=== PATIENT | female | born 1945 | race Caucasian/White ===

== ENCOUNTER 2018-02-26 17:08 | Emergency (ER) | payer MEDICARE ==
--- NOTE | 2018-02-26 17:55 | EDM.PDOC ---
ED HPI GENERAL MEDICAL PROBLEM - General Chief Complaint: ENT Problem Stated Complaint: HEAD AND EYE PAIN FALL Time Seen by Provider: 02/26/18 17:50 Source of Information: Reports: Patient, Family History Limitations: Reports: No Limitations - History of Present Illness INITIAL COMMENTS - FREE TEXT/NARRATIVE: Dominga lost her balance last pm and fell backwards, striking her posterior scalp onto the sidewallk. There was no LOC. She did develop a subconjuctival hemorrhage of the L eye today. Her vision is unaffected. She has some residual headache, and family suggested a medical evaluation. 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 - Related Data Allergies Allergy/AdvReac Type Severity Reaction Status Date / Time acetaminophen [From Percocet] Allergy Stomach Verified 06/16/14 21:38 Upset amoxicillin trihydrate Allergy Abdominal Verified 06/16/14 21:38 [From Augmentin] Pain hydrocodone Allergy Stomach Verified 06/16/14 21:38 Upset hydromorphone HCl Allergy Hallucinati Verified 06/16/14 21:38 [From Dilaudid] ons Latex, Natural Rubber Allergy Rash Verified 06/16/14 21:38 nitrofurantoin Allergy Stomach Verified 06/16/14 21:38 [From Macrobid] Upset nitrofurantoin Allergy Stomach Verified 06/16/14 21:38 macrocrystalline Upset [From Macrobid] ofloxacin [From Floxin] Allergy Agitation Verified 06/16/14 21:38 oxycodone HCl [From Percocet] Allergy Stomach Verified 06/16/14 21:38 Upset potassium clavulanate Allergy Abdominal Verified 06/16/14 21:38 [From Augmentin] Pain Home Meds: Home Meds Aspirin [Halfprin] 81 mg PO DAILY 05/20/14 [History] Calcium Carbonate/Vitamin D3 [Calcium 600 + Vit D Tablet] 1 tab PO BID 05/20/14 [History] Clobetasol [Temovate 0.05% Crm] 1 applic TOP ASDIRECTED PRN 05/20/14 [History] Estradiol [Estrace] 2 mg VAG ASDIRECTED PRN 05/20/14 [History] Imatinib [Gleevec] 200 mg PO BID 05/20/14 [History] Losartan [Cozaar] 25 mg PO DAILY 05/20/14 [History] Multivit-Min/FA/Lycopene/Lut [Centrum Silver] 1 tab PO DAILY 05/20/14 [History] Omeprazole 20 mg PO DAILY 05/20/14 [History] metFORMIN [Glucophage] 500 mg PO BID 05/20/14 [History] Ciprofloxacin HCl 500 mg PO BID 06/07/14 [History] Past Medical History Oncologic (Cancer) History: Reports: Other (See Below) (CML) ED ROS GENERAL - Review of Systems Review Of Systems: ROS reveals no pertinent complaints other than HPI. ED EXAM, GENERAL - Physical Exam Exam: See Below Exam Limited By: No Limitations General Appearance: Alert, WD/WN, No Apparent Distress Eye Exam: Right Eye: Normal Inspection, Left Eye: Other (subconjunctival hemorrhage), Bilateral Eye: EOMI, PERRL Ears: Normal External Exam, Normal TMs Nose: Normal Inspection, Normal Mucosa Throat/Mouth: Normal Inspection, Normal Lips, Normal Teeth, Normal Gums, Normal Oropharynx, Normal Voice, No Airway Compromise Head: Normocephalic, Other (contusion overlying occiput, no swelling) Neck: Normal Inspection, Supple, Non-Tender, Full Range of Motion Respiratory/Chest: Lungs Clear, Normal Breath Sounds, Chest Non-Tender Cardiovascular: Regular Rate, Rhythm, No Murmur GI/Abdominal: Normal Bowel Sounds, Soft, Non-Tender, No Organomegaly, No Distention, No Mass (Female) Exam: Deferred Rectal (Female) Exam: Deferred Back Exam: Normal Inspection Extremities: Normal Inspection, Normal Range of Motion, Non-Tender Neurological: Alert, Oriented, CN II-XII Intact, Normal Cognition, Abnormal Gait Psychiatric: Normal Affect, Normal Mood Skin Exam: Warm, Dry, Intact, Normal Color, Ecchymosis (occiput) Lymphatic: No Adenopathy Course - Vital Signs Text/Narrative:: Dominga remained stable at the [facility] ED. No meds were administered. her noncontrast Head CT was negative for intracranial pathology. Last Recorded V/S: Last Vital Signs Temp 36.8 C 02/26/18 17:20 Pulse 81 02/26/18 17:20 Resp 18 02/26/18 17:20 BP 131/67 02/26/18 17:20 Pulse Ox 97 02/26/18 17:20 - Orders/Labs/Meds Orders: Active Orders 24 hr Category Date Time Status Head wo Cont [CT] Urgent Exams 02/26/18 17:54 Taken Departure - Departure Time of Disposition: 18:45 Disposition: Home, Self-Care 01 Condition: Good Clinical Impression: Subconjunctival hemorrhage of left eye Contusion of occipital region of scalp Qualifiers: Encounter type: initial encounter Qualified Code(s): S00.03XA - Contusion of scalp, initial encounter - Discharge Information *PRESCRIPTION DRUG MONITORING PROGRAM REVIEWED*: Not Applicable *COPY OF PRESCRIPTION DRUG MONITORING REPORT IN PATIENT ESTEBAN: Not Applicable Forms: ED Department Discharge - Problem List & Annotations (1) Contusion of occipital region of scalp SNOMED Code(s): 649254400 Code(s): S00.03XA - CONTUSION OF SCALP, INITIAL ENCOUNTER Status: Acute Current Visit: Yes Annotation/Comment:: Sxs cares, analgesic of choice. Qualifiers: Encounter type: initial encounter Qualified Code(s): S00.03XA - Contusion of scalp, initial encounter (2) Subconjunctival hemorrhage of left eye SNOMED Code(s): 76006028 Code(s): H11.32 - CONJUNCTIVAL HEMORRHAGE, LEFT EYE Status: Acute Current Visit: Yes Annotation/Comment:: Observation - Problem List Review Problem List Initiated/Reviewed/Updated: Yes - My Orders Last 24 Hours: My Active Orders 02/26/18 17:54 Head wo Cont [CT] Urgent - Assessment/Plan Last 24 Hours: My Active Orders 02/26/18 17:54 Head wo Cont [CT] Urgent Plan: Follow up if needed.
== END 2018-02-26 19:20 | disposition home or self-care (01) ==
LOC: FB.ED 17:08
DX: H11.32 Conjunctival hemorrhage, left eye (principal); Z88.5 Allergy status to narcotic agent; Z88.8 Allergy status to other drugs, medicaments and biological substances; Z79.82 Long term (current) use of aspirin; Z79.899 Other long term (current) drug therapy
CPT/HCPCS: 70450; 99282

== ENCOUNTER 2019-02-18 13:33 | Emergency (ER) | payer MEDICARE ==
[2019-02-18] MEDS ORDERED: LORazepam 2 MG/ML SDV IM ONE (14:04)
[2019-02-18] MEDS ORDERED: Alum Hydroxide/Mag Hydroxide 15 ML, Lidocaine 2% 15 ML PO ONE ×2 (14:04)
--- NOTE | 2019-02-18 14:41 | EDM.PDOC ---
ED HPI GENERAL MEDICAL PROBLEM - General Chief Complaint: General Stated Complaint: TREMORS, B/P LOW Time Seen by Provider: 02/18/19 13:55 Source of Information: Reports: Patient - History of Present Illness INITIAL COMMENTS - FREE TEXT/NARRATIVE: Patient is a 73 YO WF who presented to the ED because of epigastric pain, burning sometimes dull ache/08/04. She also c/o nausea but no vomiting. Patient is anxious and is shaky. She said her anxiety is not well controlled with her present medication. - Related Data Allergies Allergy/AdvReac Type Severity Reaction Status Date / Time acetaminophen [From Percocet] Allergy Stomach Verified 02/26/18 19:11 Upset amoxicillin trihydrate Allergy Abdominal Verified 02/26/18 19:11 [From Augmentin] Pain hydrocodone Allergy Stomach Verified 02/26/18 19:11 Upset hydromorphone HCl Allergy Hallucinati Verified 02/26/18 19:11 [From Dilaudid] ons Latex, Natural Rubber Allergy Rash Verified 02/26/18 19:11 nitrofurantoin Allergy Stomach Verified 02/26/18 19:11 [From Macrobid] Upset nitrofurantoin Allergy Stomach Verified 02/26/18 19:11 macrocrystalline Upset [From Macrobid] ofloxacin [From Floxin] Allergy Agitation Verified 02/26/18 19:11 oxycodone HCl [From Percocet] Allergy Stomach Verified 02/26/18 19:11 Upset potassium clavulanate Allergy Abdominal Verified 02/26/18 19:11 [From Augmentin] Pain Home Meds: Home Meds Aspirin [Halfprin] 81 mg PO DAILY 05/20/14 [History] Calcium Carbonate/Vitamin D3 [Calcium 600 + Vit D Tablet] 1 tab PO BID 05/20/14 [History] Clobetasol [Temovate 0.05% Crm] 1 applic TOP ASDIRECTED PRN 05/20/14 [History] Imatinib [Gleevec] 200 mg PO BID 05/20/14 [History] Losartan [Cozaar] 25 mg PO DAILY 05/20/14 [History] Multivit-Min/FA/Lycopene/Lut [Centrum Silver] 1 tab PO DAILY 05/20/14 [History] Omeprazole 20 mg PO DAILY 05/20/14 [History] metFORMIN [Glucophage] 500 mg PO BID 05/20/14 [History] L.acidoph,Paracasei, B.lactis [Probiotic] 1 tab PO DAILY 02/26/18 [History] Sertraline [Zoloft] 100 mg PO DAILY 02/26/18 [History] atorvaSTATin [Lipitor] 20 mg PO BEDTIME 02/26/18 [History] Past Medical History Oncologic (Cancer) History: Reports: Other (See Below) (CML) ED ROS GENERAL - Review of Systems Review Of Systems: See Below Constitutional: Reports: No Symptoms HEENT: Reports: No Symptoms Respiratory: Reports: No Symptoms Cardiovascular: Reports: No Symptoms Endocrine: Reports: No Symptoms GI/Abdominal: Reports: Other (epigastric pain) : Reports: No Symptoms Musculoskeletal: Reports: No Symptoms Skin: Reports: No Symptoms Neurological: Reports: No Symptoms ED EXAM, GENERAL - Physical Exam Exam: See Below Exam Limited By: No Limitations General Appearance: Alert, No Apparent Distress Ears: Normal External Exam Nose: Normal Inspection, Normal Mucosa Throat/Mouth: Normal Inspection Head: Atraumatic, Normocephalic Neck: Normal Inspection, Non-Tender Respiratory/Chest: No Respiratory Distress, Lungs Clear, Normal Breath Sounds Cardiovascular: Normal Peripheral Pulses, Regular Rate, Rhythm GI/Abdominal: Normal Bowel Sounds, Soft, Other (epigastric tenderness) Extremities: Normal Inspection Neurological: Alert, Oriented Psychiatric: Anxious Course - Vital Signs Text/Narrative:: EKG-NSR No acute ST or T wave changes GI cocktail resolved her epigastric pain Ativan 1 mg IM x1 Last Recorded V/S: Last Vital Signs Temp 36.9 C 02/18/19 13:50 Pulse 86 02/18/19 13:50 Resp 15 02/18/19 13:50 BP 126/58 L 02/18/19 13:50 Pulse Ox 100 02/18/19 13:50 - Orders/Labs/Meds Orders: Active Orders 24 hr Category Date Time Status EKG Documentation Completion [RC] ASDIRECTED Care 02/18/19 14:03 Active EKG 12 Lead [EK] Routine Ther 02/18/19 14:03 Ordered Meds: Medications Discontinued Medications Generic Name Dose Route Start Last Admin Trade Name Freq PRN Reason Stop Dose Admin Al Hydroxide/Mg Hydroxide 15 0 ml 02/18/19 14:04 02/18/19 14:17 ml/ Lidocaine HCl 15 ml PO 02/18/19 14:05 30 ml ONETIME ONE Administration Lorazepam 1 mg 02/18/19 14:04 02/18/19 14:16 Ativan IM 02/18/19 14:05 1 mg ONETIME ONE Administration Departure - Departure Time of Disposition: 14:35 Disposition: Home, Self-Care 01 Clinical Impression: GERD (gastroesophageal reflux disease), Anxiety - Discharge Information Instructions: Heartburn, [id number], Panic Attack, [id number] Referrals: Susanna Avery NP [Primary Care Provider] - Forms: ED Department Discharge Additional Instructions: Please read discharge instructions on anxiety and GERD/Acid Reflux Follow up with your primary doctor or psychiatrist regarding your anxiety - My Orders Last 24 Hours: My Active Orders 02/18/19 14:03 EKG Documentation Completion [RC] ASDIRECTED EKG 12 Lead [EK] Routine - Assessment/Plan Last 24 Hours: My Active Orders 02/18/19 14:03 EKG Documentation Completion [RC] ASDIRECTED EKG 12 Lead [EK] Routine
== END 2019-02-18 14:50 | disposition home or self-care (01) ==
LOC: FB.ED 13:33
DX: K21.9 Gastro-esophageal reflux disease without esophagitis (principal); F41.9 Anxiety disorder, unspecified; Z88.5 Allergy status to narcotic agent; Z91.040 Latex allergy status; Z88.1 Allergy status to other antibiotic agents; Z88.8 Allergy status to other drugs, medicaments and biological substances; Z79.82 Long term (current) use of aspirin; Z79.84 Long term (current) use of oral hypoglycemic drugs; Z79.899 Other long term (current) drug therapy
CPT/HCPCS: 93005; 96372; 99283; A9270; J2060

== ENCOUNTER 2019-12-31 12:11 | Emergency (ER) | payer MEDICARE ==
--- NOTE | 2019-12-31 13:59 | EDM.PDOC ---
ED HPI GENERAL MEDICAL PROBLEM - General Chief Complaint: General Stated Complaint: FALL Time Seen by Provider: 12/31/19 12:15 Source of Information: Reports: Patient History Limitations: Reports: No Limitations - History of Present Illness INITIAL COMMENTS - FREE TEXT/NARRATIVE: Patient presented to the ED because she tripped and fell and landed on her face to the floor. She c/o mild headache and took ibuprofen 400 mg. There is no associated N/V. There is no LOC after the fall. She wasn't feeling dizzy or weak prior to the fall. She said she fell because her loose stool was dripping down the floor and that's why she slipped and fell. - Related Data Allergies Allergy/AdvReac Type Severity Reaction Status Date / Time acetaminophen [From Percocet] Allergy Stomach Verified 02/18/19 15:57 Upset amoxicillin trihydrate Allergy Abdominal Verified 02/18/19 15:57 [From Augmentin] Pain hydrocodone Allergy Stomach Verified 02/18/19 15:57 Upset hydromorphone HCl Allergy Hallucinati Verified 02/18/19 15:57 [From Dilaudid] ons Latex, Natural Rubber Allergy Rash Verified 02/18/19 15:57 nitrofurantoin Allergy Stomach Verified 02/18/19 15:57 [From Macrobid] Upset nitrofurantoin Allergy Stomach Verified 02/18/19 15:57 macrocrystalline Upset [From Macrobid] ofloxacin [From Floxin] Allergy Agitation Verified 02/18/19 15:57 oxycodone HCl [From Percocet] Allergy Stomach Verified 02/18/19 15:57 Upset potassium clavulanate Allergy Abdominal Verified 02/18/19 15:57 [From Augmentin] Pain Home Meds: Home Meds Aspirin [Halfprin] 81 mg PO DAILY 05/20/14 [History] Calcium Carbonate/Vitamin D3 [Calcium 600 + Vit D Tablet] 1 tab PO BID 05/20/14 [History] Clobetasol [Temovate 0.05% Crm] 1 applic TOP ASDIRECTED PRN 05/20/14 [History] Imatinib [Gleevec] 200 mg PO BID 05/20/14 [History] Losartan [Cozaar] 25 mg PO DAILY 05/20/14 [History] Multivit-Min/FA/Lycopene/Lut [Centrum Silver] 1 tab PO DAILY 05/20/14 [History] Omeprazole 20 mg PO DAILY 05/20/14 [History] metFORMIN [Glucophage] 500 mg PO BID 05/20/14 [History] L.acidoph,Paracasei, B.lactis [Probiotic] 1 tab PO DAILY 02/26/18 [History] Sertraline [Zoloft] 100 mg PO DAILY 02/26/18 [History] atorvaSTATin [Lipitor] 20 mg PO BEDTIME 02/26/18 [History] Past Medical History Psychiatric History: Reports: Anxiety, Depression 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 Social & Family History - Family History Family Medical History: Noncontributory - Caffeine Use Caffeine Use: Reports: Coffee, Soda ED ROS GENERAL - Review of Systems Review Of Systems: See Below Constitutional: Reports: No Symptoms HEENT: Reports: No Symptoms Respiratory: Reports: No Symptoms Cardiovascular: Reports: No Symptoms Endocrine: Reports: No Symptoms GI/Abdominal: Reports: No Symptoms, Diarrhea : Reports: No Symptoms Musculoskeletal: Reports: No Symptoms Skin: Reports: No Symptoms, Other (ecchymoses-rt orbital area) Neurological: Reports: No Symptoms Psychiatric: Reports: No Symptoms Hematologic/Lymphatic: Reports: No Symptoms ED EXAM, GENERAL - Physical Exam Exam: See Below Exam Limited By: No Limitations General Appearance: Alert, No Apparent Distress Ears: Normal External Exam, Normal Canal Nose: Normal Inspection, Normal Mucosa Throat/Mouth: Normal Inspection, Normal Lips, Normal Teeth Head: Atraumatic, Normocephalic, Facial Tenderness Neck: Normal Inspection Respiratory/Chest: No Respiratory Distress, Lungs Clear, Normal Breath Sounds Cardiovascular: Normal Peripheral Pulses, Regular Rate, Rhythm, No Edema, No Gallop GI/Abdominal: Normal Bowel Sounds, Soft, Non-Tender, No Organomegaly Back Exam: Normal Inspection, Full Range of Motion Extremities: Normal Inspection, Normal Range of Motion, Non-Tender Neurological: Alert, Oriented, CN II-XII Intact, Normal Cognition, Normal Gait Psychiatric: Normal Affect, Normal Mood Skin Exam: Warm, Dry, Intact Course - Vital Signs Text/Narrative:: Head and Facial CT-neg Patient have no Neuro symptoms Last Recorded V/S: Last Vital Signs Temp 37.1 C 12/31/19 12:11 Pulse 82 12/31/19 12:11 Resp 18 12/31/19 12:11 BP 142/58 H 12/31/19 12:11 Pulse Ox 100 12/31/19 12:11 - Orders/Labs/Meds Orders: Active Orders 24 hr Category Date Time Status Head wo Cont [CT] Stat Exams 12/31/19 12:59 Taken Max Facial Sinus wo Cont [CT] Stat Exams 12/31/19 12:59 Taken Departure - Departure Time of Disposition: 14:10 Disposition: Home, Self-Care 01 Condition: Good Clinical Impression: Closed head injury, Facial injury, Fall, Diarrhea - Discharge Information Referrals: Susanna Avery [employer]ISING MANAGER [Primary Care Provider] - Additional Instructions: Please read discharge instructions on closed head injury take tylenol 1000 mg every 8 hours as needed for pain Take imodium 2 tablets every 6 hours as needed for diarrhea. Follow up as needed Sepsis Event Note (ED) - Evaluation Sepsis Screening Result: No Definite Risk - Focused Exam Vital Signs: Vital Signs Temp Pulse Resp BP Pulse Ox 12/31/19 12:11 37.1 C 82 18 142/58 H 100 - My Orders Last 24 Hours: My Active Orders 12/31/19 12:59 Head wo Cont [CT] Stat Max Facial Sinus wo Cont [CT] Stat - Assessment/Plan Last 24 Hours: My Active Orders 12/31/19 12:59 Head wo Cont [CT] Stat Max Facial Sinus wo Cont [CT] Stat
--- NOTE | 2019-12-31 14:17 | CT ---
INDICATION: Fall/facial injury right eye area. Fell facedown on the floor. CT HEAD WITHOUT CONTRAST: Spiral 3.75 mm axial sections were obtained through the brain without contrast 12/31/19 with sagittal and coronal reconstructions and compared with 02/26/18 examination. Total exam DLP was 1322.30 mGy-cm. There is again noted what appears to be a moderately large retention cyst in the right maxillary antrum. The paranasal sinuses and the mastoid air cells were otherwise well aerated. [id number] degenerative changes are noted at the odonto-atlantean joint. The orbits appear to be intact. Soft tissue swelling is noted overlying the right orbit, especially laterally, and extending into the temporal area. Mild deformity is noted at the nasal bones, present previously - no acute fracture site was noted at the nasal bones. No cranial fracture site was seen. No orbital fracture site was seen. Extensive calcification is noted in the vertebral arteries and, to a lesser extent, internal carotid arteries. No shift of midline structures was identified with the ventricles appearing fairly normal. There is a new finding of what appears to be a small lacunar infarct in the left basal ganglia. White matter changes are noted compatible with a mild degree of microvascular disease and appear to be progressive compared with the previous study. The cortical sulci are prominent and appear to be increased in prominence somewhat suggesting progressive cortical atrophy. No progressive central atrophy was seen, however. No evidence of a bleeding site or hematoma was identified. IMPRESSION: 1. No definite acute intracranial abnormality - no bleeding site or hematoma. 2. Lacunar infarct now seen in the left basal ganglia. A very tiny abnormality in that area may have been present previously but is definitely increased in size compared with that previous study from 2018. 3. Progressive cortical atrophy. 4. Cerebrovascular disease with arterial calcifications and white matter changes compatible with microvascular disease type changes. 5. Right maxillary antral probable retention cyst again noted. Report was called to Dr. Meneses at 13:46 hours. [facility]
--- NOTE | 2019-12-31 14:22 | CT ---
INDICATION: Fall/facial injury right eye area, fell facedown on the floor. CT OF THE MAXILLOFACIAL BONES: Spiral 2.5 mm axial sections were obtained through the maxillofacial area with sagittal and coronal reconstructions, 12/31/19 - no comparisons. Total exam DLP was 694.36 mGy-cm. A retention cyst is noted in the right maxillary antrum. The maxillary infundibuli were patent with paranasal sinuses otherwise unremarkable. The orbits appear to be intact. No evidence of blowout fracture or other maxillofacial fracture site was identified. There is some irregularity - minimal deformity at the anterior nasal bones, which has been present previously - on a CT scan previously present 2017, which could be on the basis of previous trauma. However, no acute fracture or dislocation in the maxillofacial area could be identified. IMPRESSION: No evidence of acute fracture maxillofacial area. Report was called to Dr. Meneses at 13:46 hours. [facility]
== END 2019-12-31 14:13 | disposition home or self-care (01) ==
LOC: FB.ED 12:11
DX: S09.90XA Unspecified injury of head, initial encounter (principal); S09.93XA Unspecified injury of face, initial encounter; R19.7 Diarrhea, unspecified; F41.9 Anxiety disorder, unspecified; F32.9 Major depressive disorder, single episode, unspecified; Z88.6 Allergy status to analgesic agent; Z88.1 Allergy status to other antibiotic agents; Z88.5 Allergy status to narcotic agent; Z79.82 Long term (current) use of aspirin; Z79.84 Long term (current) use of oral hypoglycemic drugs; Z79.899 Other long term (current) drug therapy; W01.0XXA Fall on same level from slipping, tripping and stumbling without subsequent striking against object, initial encounter
CPT/HCPCS: 70450; 70486; 99284-25

== ENCOUNTER 2021-01-26 12:56 | Emergency (ER) | payer MEDICARE ==
[2021-01-26] MEDS ORDERED: Pantoprazole 40 MG Vial IVPUSH ONE (13:05)
[2021-01-26] MEDS ORDERED: Sodium Chloride 0.9% 1,000 ML IV ONE (13:06)
[2021-01-26] MEDS ORDERED: Ondansetron 4 MG/2 ML SDV IVPUSH ONE (13:06)
[2021-01-26] MEDS ORDERED: Sodium Chloride 0.9% 10 ML Syringe FLUSH PRN (13:07)
--- NOTE | 2021-01-26 13:44 | EDM.PDOC ---
ED HPI GENERAL MEDICAL PROBLEM - General Stated Complaint: abdominal pain Time Seen by Provider: 01/26/21 13:00 Source of Information: Reports: Patient, Family History Limitations: Reports: No Limitations - History of Present Illness INITIAL COMMENTS - FREE TEXT/NARRATIVE: Patient is a 75 YO WF who presented to the ED because of a 3 day history of abdominal pain, nausea/vomiting of coffee ground emesis,melanotic stools. The pain is sharp,10/10, over the epigastric area radiating to the mid back. Today she is feeling weak and dizzy that's why she decided to be seen in the ED. She also c/o fever,chills, dry cough for the past week. Upper Mid-Anterior Abdomen Pain Score (Numeric/FACES): 2 - Related Data Allergies Allergy/AdvReac Type Severity Reaction Status Date / Time acetaminophen [From Percocet] Allergy Stomach Verified 02/18/19 15:57 Upset amoxicillin trihydrate Allergy Abdominal Verified 02/18/19 15:57 [From Augmentin] Pain hydrocodone Allergy Stomach Verified 02/18/19 15:57 Upset hydromorphone HCl Allergy Hallucinati Verified 02/18/19 15:57 [From Dilaudid] ons Latex, Natural Rubber Allergy Rash Verified 02/18/19 15:57 nitrofurantoin Allergy Stomach Verified 02/18/19 15:57 [From Macrobid] Upset nitrofurantoin Allergy Stomach Verified 02/18/19 15:57 macrocrystalline Upset [From Macrobid] ofloxacin [From Floxin] Allergy Agitation Verified 02/18/19 15:57 oxycodone HCl [From Percocet] Allergy Stomach Verified 02/18/19 15:57 Upset potassium clavulanate Allergy Abdominal Verified 02/18/19 15:57 [From Augmentin] Pain Home Meds: Home Meds Aspirin [Halfprin] 81 mg PO DAILY 05/20/14 [History] Calcium Carbonate/Vitamin D3 [Calcium 600 + Vit D Tablet] 1 tab PO BID 05/20/14 [History] Clobetasol [Temovate 0.05% Crm] 1 applic TOP ASDIRECTED PRN 05/20/14 [History] Imatinib [Gleevec] 200 mg PO BID 05/20/14 [History] Losartan [Cozaar] 25 mg PO DAILY 05/20/14 [History] Multivit-Min/FA/Lycopene/Lut [Centrum Silver] 1 tab PO DAILY 05/20/14 [History] Omeprazole 20 mg PO DAILY 05/20/14 [History] metFORMIN [Glucophage] 500 mg PO BID 05/20/14 [History] L.acidoph,Paracasei, B.lactis [Probiotic] 1 tab PO DAILY 02/26/18 [History] Sertraline [Zoloft] 100 mg PO DAILY 02/26/18 [History] atorvaSTATin [Lipitor] 20 mg PO BEDTIME 02/26/18 [History] Past Medical History Psychiatric History: Reports: Anxiety, Depression Hematologic History: Reports: Other (See Below) Other Hematologic History: hx of leukemia 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 Social & Family History - Family History Family Medical History: No Pertinent Family History - Caffeine Use Caffeine Use: Reports: Coffee, Soda ED ROS GENERAL - Review of Systems Review Of Systems: See Below Constitutional: Reports: No Symptoms, Fever, Chills, Weakness HEENT: Reports: No Symptoms Respiratory: Reports: No Symptoms Cardiovascular: Reports: No Symptoms Endocrine: Reports: No Symptoms GI/Abdominal: Reports: Abdominal Pain, Anorexia, Black Stool, Nausea, Vomiting : Reports: No Symptoms Musculoskeletal: Reports: No Symptoms Skin: Reports: No Symptoms ED EXAM, GI/ABD - Physical Exam Exam: See Below Exam Limited By: No Limitations General Appearance: Alert, No Apparent Distress Eyes: Bilateral: Pale Conjunctiva Ears: Normal External Exam, Normal Canal, Hearing Grossly Normal Nose: Normal Inspection, Normal Mucosa Throat/Mouth: Normal Inspection, Normal Lips, Normal Teeth Head: Atraumatic, Normocephalic Neck: Normal Inspection Respiratory/Chest: No Respiratory Distress, Lungs Clear, Normal Breath Sounds, No Accessory Muscle Use, Chest Non-Tender Cardiovascular: Normal Peripheral Pulses, Regular Rate, Rhythm, No Edema, No Gallop GI/Abdominal Exam: Normal Bowel Sounds, Soft, No Distention, Other (epigastric tenderness) Rectal (Female) Exam: Black Stool Back Exam: Normal Inspection, Full Range of Motion Extremities: Normal Inspection, Normal Range of Motion, Non-Tender Neurological: Alert, Oriented, CN II-XII Intact, Normal Cognition Course - Vital Signs Text/Narrative:: Lab/CXR/CT abd-pelvis result was reviewed and discussed with patient NS 1 L bolus Zofran 4 mg IV x1 Protonix 80 mg IV x1 Last Recorded V/S: Last Vital Signs Temp 37.3 C 01/26/21 12:57 Pulse 107 H 01/26/21 15:07 Resp 16 01/26/21 15:07 BP 95/47 L 01/26/21 15:07 Pulse Ox 100 01/26/21 15:07 - Orders/Labs/Meds Orders: Active Orders 24 hr Category Date Time Status CORONAVIRUS COVID-19 RUDY [MOLEC] Stat Lab 01/26/21 16:28 Ordered OCCULT BLOOD DIAGNOSTIC [OP] Stat Lab 01/26/21 16:28 Ordered Sodium Chloride 0.9% [Normal Saline] 1,000 ml Med 01/26/21 13:06 Active IV .BOLUS Sodium Chloride 0.9% [Saline Flush] Med 01/26/21 13:07 Active 10 ml FLUSH ASDIRECTED PRN Medication Orders Sodium Chloride (Normal Saline) 1,000 mls @ 999 drops/hr IV .BOLUS ONE Stop: 01/27/21 04:06 Last Admin: 01/26/21 13:10 Dose: 999 drops/hr Documented by: PEDRO Sodium Chloride (Sodium Chloride 0.9% 10 Ml Syringe) 10 ml FLUSH ASDIRECTED PRN PRN Reason: Keep Vein Open Labs: Laboratory Tests 01/26/21 01/26/21 01/26/21 Range/Units 13:15 13:15 13:15 WBC 6.3 (3.0-10.3) x10-3/uL RBC 2.36 L (3.60-5.20) x10(6)uL Hgb 7.6 L (11.4-15.5) g/dL Hct 23.0 L (34.2-48.2) % MCV 97.5 (76.7-100.5) fL MCH 32.2 (23.9-33.9) pg MCHC 33.0 (31.9-34.8) g/dL RDW 14.0 (12.3-16.5) % Plt Count 208 (151-488) x10(3)uL MPV 9.5 (7.1-12.4) fL Neut % (Auto) 70.3 (30.8-76.2) % Lymph % (Auto) 18.8 (18.4-52.1) % [place] % (Auto) 8.9 (4.4-15.7) % Eos % (Auto) 1.0 (0.6-8.1) % Baso % (Auto) 1.0 (0.2-1.5) % Neut # (Auto) 4.4 (1.5-6.3) x10-3/uL Lymph # (Auto) 1.2 (1.0-4.4) x10-3/uL [place] # (Auto) 0.6 (0.3-1.0) x10-3/uL Eos # (Auto) 0.1 (0.0-0.8) x10-3/uL Baso # (Auto) 0.1 (0.0-0.1) x10-3/uL PT 11.1 (9.0-11.1) sec INR 1.03 (1.00-1.24) Sodium 142 (135-145) mmol/L Potassium 4.3 (3.5-5.3) mmol/L Chloride 105 (100-110) mmol/L Carbon Dioxide 28 (21-32) mmol/L BUN 52 H (7-18) mg/dL Creatinine 1.1 H (0.55-1.02) mg/dL Est Cr Clr Drug Dosing TNP Estimated GFR (MDRD) 49 L (>60) BUN/Creatinine Ratio 47.3 H (9-20) Glucose 102 (80-116) mg/dL Calcium 9.7 (8.6-10.2) mg/dL Total Bilirubin 0.2 (0.1-1.3) mg/dL AST 38 H D (5-25) IU/L ALT 30 D (12-36) U/L Alkaline Phosphatase 158 H (56-112) IU/L Total Protein 6.1 (6.0-8.0) g/dL Albumin 2.6 L (3.2-4.6) g/dL Globulin 3.5 g/dL Albumin/Globulin Ratio 0.7 Amylase 39 (25-115) U/L Lipase (73-393) U/L Urine Color (YELLOW) Urine Appearance (CLEAR) Urine pH (5.0-6.5) Ur Specific [place] (1.010-1.025) Urine Protein (NEGATIVE) mg/dL Urine Glucose (UA) (NORMAL) mg/dL Urine Ketones (NEGATIVE) mg/dL Urine Occult Blood (NEGATIVE) Urine Nitrite (NEGATIVE) Urine Bilirubin (NEGATIVE) Urine Urobilinogen (NEGATIVE) mg/dL Ur Leukocyte Esterase (NEGATIVE) Urine RBC (0-5) Urine WBC (0-5) Ur Squamous Epith Cells (NS,R,O) Urine Bacteria (NS) 01/26/21 01/26/21 Range/Units 13:15 14:45 WBC (3.0-10.3) x10-3/uL RBC (3.60-5.20) x10(6)uL Hgb (11.4-15.5) g/dL Hct (34.2-48.2) % MCV (76.7-100.5) fL MCH (23.9-33.9) pg MCHC (31.9-34.8) g/dL RDW (12.3-16.5) % Plt Count (151-488) x10(3)uL MPV (7.1-12.4) fL Neut % (Auto) (30.8-76.2) % Lymph % (Auto) (18.4-52.1) % [place] % (Auto) (4.4-15.7) % Eos % (Auto) (0.6-8.1) % Baso % (Auto) (0.2-1.5) % Neut # (Auto) (1.5-6.3) x10-3/uL Lymph # (Auto) (1.0-4.4) x10-3/uL [place] # (Auto) (0.3-1.0) x10-3/uL Eos # (Auto) (0.0-0.8) x10-3/uL Baso # (Auto) (0.0-0.1) x10-3/uL PT (9.0-11.1) sec INR (1.00-1.24) Sodium (135-145) mmol/L Potassium (3.5-5.3) mmol/L Chloride (100-110) mmol/L Carbon Dioxide (21-32) mmol/L BUN (7-18) mg/dL Creatinine (0.55-1.02) mg/dL Est Cr Clr Drug Dosing Estimated GFR (MDRD) (>60) BUN/Creatinine Ratio (9-20) Glucose (80-116) mg/dL Calcium (8.6-10.2) mg/dL Total Bilirubin (0.1-1.3) mg/dL AST (5-25) IU/L ALT (12-36) U/L Alkaline Phosphatase (56-112) IU/L Total Protein (6.0-8.0) g/dL Albumin (3.2-4.6) g/dL Globulin g/dL Albumin/Globulin Ratio Amylase (25-115) U/L Lipase 100 (73-393) U/L Urine Color Yellow (YELLOW) Urine Appearance Clear (CLEAR) Urine pH 5.0 (5.0-6.5) Ur Specific [place] 1.015 (1.010-1.025) Urine Protein Negative (NEGATIVE) mg/dL Urine Glucose (UA) Normal (NORMAL) mg/dL Urine Ketones Negative (NEGATIVE) mg/dL Urine Occult Blood Negative (NEGATIVE) Urine Nitrite Negative (NEGATIVE) Urine Bilirubin Small H (NEGATIVE) Urine Urobilinogen Normal (NEGATIVE) mg/dL Ur Leukocyte Esterase Small H (NEGATIVE) Urine RBC 0-5 (0-5) Urine WBC 0-5 (0-5) Ur Squamous Epith Cells Few H (NS,R,O) Urine Bacteria Rare H (NS) Meds: Medications Generic Name Dose Route Start Last Admin Trade Name Freq PRN Reason Stop Dose Admin Sodium Chloride 1,000 mls @ 999 drops/hr 01/26/21 13:06 01/26/21 13:10 Normal Saline IV 01/27/21 04:06 999 drops/hr .BOLUS ONE Administration Sodium Chloride 10 ml 01/26/21 13:07 Sodium Chloride 0.9% 10 Ml Syringe FLUSH ASDIRECTED PRN Keep Vein Open Discontinued Medications Generic Name Dose Route Start Last Admin Trade Name Freq PRN Reason Stop Dose Admin Iopamidol 75 ml 01/26/21 13:55 01/26/21 14:24 Iopamidol 755 Mg/Ml 75 Ml Bottle IV 01/26/21 13:56 75 ml ASDIRECTED ONE Administration Ondansetron HCl 4 mg 01/26/21 13:06 01/26/21 13:34 Ondansetron 4 Mg/2 Ml Sdv IVPUSH 01/26/21 13:07 4 mg ONETIME ONE Administration Pantoprazole Sodium 80 mg 01/26/21 13:05 01/26/21 13:34 Pantoprazole 40 Mg Vial IVPUSH 01/26/21 13:06 80 mg .BOLUS ONE Administration Departure - Departure Time of Disposition: 18:00 Disposition: DC/Tfer to Acute Hospital 02 Condition: Good Clinical Impression: UGI bleed, Anemia - Discharge Information Referrals: PCP,Unknown [Ordering Only Provider] - Sepsis Event Note (ED) - Focused Exam Vital Signs: Vital Signs Temp Pulse Resp BP Pulse Ox 01/26/21 15:07 107 H 16 95/47 L 100 01/26/21 12:57 37.3 C 74 18 119/63 100 - My Orders Last 24 Hours: My Active Orders 01/26/21 13:06 Sodium Chloride 0.9% [Normal Saline] 1,000 ml IV .BOLUS 01/26/21 13:07 Sodium Chloride 0.9% [Saline Flush] 10 ml FLUSH ASDIRECTED PRN 01/26/21 16:28 CORONAVIRUS COVID-19 RUDY [MOLEC] Stat OCCULT BLOOD DIAGNOSTIC [OP] Stat - Assessment/Plan Last 24 Hours: My Active Orders 01/26/21 13:06 Sodium Chloride 0.9% [Normal Saline] 1,000 ml IV .BOLUS 01/26/21 13:07 Sodium Chloride 0.9% [Saline Flush] 10 ml FLUSH ASDIRECTED PRN 01/26/21 16:28 CORONAVIRUS COVID-19 RUDY [MOLEC] Stat OCCULT BLOOD DIAGNOSTIC [OP] Stat
[2021-01-26] MEDS ORDERED: Iopamidol 755 Mg/ML 75 ML Bottle IV ONE (13:55)
--- NOTE | 2021-01-26 15:38 | CT ---
INDICATION: Abdominal pain, coffee brown emesis. CT ABDOMEN AND PELVIS WITH CONTRAST: Spiral 3.75 mm axial sections were obtained through the abdomen and pelvis with 75 mL Isovue-370 at 2 mL/sec utilizing sagittal and coronal reconstructions 01/26/21, and compared with 01/06/19. Total exam DLP was 433.84 milligray-cm. Minimal scarring is noted at the lung bases. The heart is normal in size. No pericardial effusion was seen. Aerobilia is noted most likely on the basis of post cholecystectomy change. Common bile duct is somewhat dilated compatible with post cholecystectomy status. The liver was otherwise unremarkable. The adrenal glands appear grossly normal. Probable simple cysts are again noted in the mid pole of the left kidney and do not appear grossly changed. The kidneys were otherwise unremarkable. The spleen was unremarkable. The pancreas was relatively diminutive but otherwise unremarkable. The gastric wall again appears somewhat prominent in the fundal area of questionable significance. Stomach is moderately filled with fluid. The duodenum is also moderately filled with fluid. The appendix was not definitely visualized. No evidence of free air or definite mechanical obstruction was identified. Thick-walled loops of jejunum are noted which could be on the basis of a localized inflammatory process with possibility of Crohn's disease. A mechanically obstructive process is not suggested. Calcifications are noted in the abdominal aorta, splenic, iliac and femoral arteries. The uterus is absent compatible with hysterectomy. The urinary bladder was essentially unremarkable. Hypertrophic degenerative changes and disc disease are noted at L3 through S1 with vacuum disc phenomenon at those levels. Hypertrophic changes are also noted at L2-L3. No other organomegaly, mass lesions, or free fluid collections were identified in the abdomen or pelvis. IMPRESSION: 1. Thick-walled loops of jejunum suggest the possibility of inflammatory disease, possibly Crohn's disease - correlate clinically. 2. The liver appears fairly normal on today's examination but with aerobilia noted likely on the basis of post cholecystectomy status. 3. Renal cystic changes on the left. Simple cysts suggested. 4. Hypertrophic degenerative changes and disc disease L3 through S1. 5. Post appendectomy. 6. Post hysterectomy. 7. Normal-appearing urinary bladder on the current study. Report was called to Dr. Meneses at 1454 hours 01/26/21. [facility]
--- NOTE | 2021-01-26 15:49 | CR ---
INDICATION: Cough. CHEST ONE VIEW: AP portable view of the chest 01/26/21 was compared with 11/04/10 and revealed the heart to remain normal in size and shape. The aorta is tortuous with minimal calcification suggested in the arch. A definite active infiltrate or effusion was not identified. Slight blunting of the right costophrenic angle is noted of questionable significance but could be related to minimal scarring in that area. No gross consolidating pneumonia or effusion was seen. IMPRESSION: No definite acute process. Report was called to Dr. Meneses at approximately 1500 hours 01/26/21. [facility]
[2021-01-26] MEDS: Sodium Chloride 0.9% 1,000 ML IV SCH (16:33)
[2021-01-26] MEDS ORDERED: Glycopyrrolate 0.2 MG/ML 5 ML MDV IV ONE (20:13)
[2021-01-26] MEDS ORDERED: Labetalol 100 MG/20 ML MDV IV ONE (20:13)
[2021-01-26] MEDS ORDERED: Propofol 200 MG/20 ML SDV IV ONE (20:13)
--- NOTE | 2021-01-26 20:19 | PCM.SN.2 ---
- Free Text/Narrative Note: pt evaluated by Dr Meneses who dx a GI bleed with coffee ground emesis and n/v, he gave Protonix 80 mg IV and 1 liter NS, he arranged transfer to [facility] however beef breaker just reported that there are no RNs and a bed cannot be obtained until morning, the treating oncologist requested 1u PRBC in the meantime, pt has a dx of leukemia pt has been stable in the ED will transfuse 1u PRBC and monitor vs, additional blood as needed no h/o CVD, on ASA ASSESS: UGI bleed PLAN: admit to obs bed here pending transfer to [facility] in AM when a bed is available, there are not open beds at [facility] either, [facility] is her hospital of choice
[2021-01-26] MEDS ORDERED: Ondansetron 4 MG/2 ML SDV IV PRN (20:25)
[2021-01-26] MEDS ORDERED: Zolpidem 5 MG Tab PO PRN (20:25)
[2021-01-26] MEDS ORDERED: Acetaminophen 325 MG Tab PO PRN (20:25)
[2021-01-26] MEDS ORDERED: IMATINIB 400 MG PO SCH (21:00)
[2021-01-26] MEDS ORDERED: atorvaSTATin 20 MG Tab PO SCH (21:00)
[2021-01-26] MEDS ORDERED: metFORMIN 500 MG Tab PO SCH (21:00)
[2021-01-26] MEDS ORDERED: Sodium Chloride 0.9% 250 ML IV SCH (21:00)
[2021-01-26] MEDS ORDERED: Sertraline 100 MG Tab PO SCH (21:15)
--- NOTE | 2021-01-26 21:24 | PCM.SN.2 ---
- Free Text/Narrative Note: I was called to ER to start a IV on this patient. Nurses have made 5 attempts. Patient is dehydrated and anemic. With sterile technique I attemptted to start a 20 jelco in both the right hand times one and right hand times one. I started a 18 jelco in the left antecubital and secured this, IV fluid runs well. Xylocaine 1% 0.3 cc's was used at each site. Report given to Brodie Brandon RN.
[2021-01-27] MEDS: Sodium Chloride 0.9% 1,000 ML IV SCH (08:00)
[2021-01-27] MEDS ORDERED: Sertraline 100 MG Tab PO SCH (09:00)
[2021-01-27] MEDS ORDERED: Losartan 25 MG Tab PO SCH (09:00)
[2021-01-27] MEDS ORDERED: BUPROPION 300 MG PO SCH (09:00)
--- NOTE | 2021-01-27 09:09 | PCM.HP.2 ---
H&P History of Present Illness - General Date of Service: 01/27/21 Admit Problem/Dx: Admission Diagnosis/Problem Admission Diagnosis/Problem Bleeding Source of Information: Patient, Old Records History Limitations: Reports: No Limitations - History of Present Illness Initial Comments - Free Text/Narative: Dominga is a pleasant 75-year-old female admitted through the ED, with coffee ground emesis, anemia, generalized weakness. She presented with upper abdominal pain for 3 days that was colicky in nature, associated with coffee-ground emesis and black tarry stools. She does not of history of PUD, and previously took omeprazole which was discontinued a month ago by her oncologist. She goes to [facility], and is being treated for leukemia. This morning she has received 1 uni t of PRBCs, complains of feeling hungry and tired Upper Mid-Anterior Abdomen Pain Score (Numeric/FACES): 2 - Related Data Allergies/Adverse Reactions: Allergies Allergy/AdvReac Type Severity Reaction Status Date / Time acetaminophen [From Percocet] Allergy Stomach Verified 01/26/21 21:08 Upset amoxicillin trihydrate Allergy Abdominal Verified 01/26/21 21:08 [From Augmentin] Pain hydrocodone Allergy Stomach Verified 01/26/21 21:08 Upset hydromorphone HCl Allergy Hallucinati Verified 01/26/21 21:08 [From Dilaudid] ons Latex, Natural Rubber Allergy Rash Verified 01/26/21 21:08 nitrofurantoin Allergy Stomach Verified 01/26/21 21:08 [From Macrobid] Upset nitrofurantoin Allergy Stomach Verified 01/26/21 21:08 macrocrystalline Upset [From Macrobid] ofloxacin [From Floxin] Allergy Agitation Verified 01/26/21 21:08 oxycodone HCl [From Percocet] Allergy Stomach Verified 01/26/21 21:08 Upset potassium clavulanate Allergy Abdominal Verified 01/26/21 21:08 [From Augmentin] Pain Home Medications: Home Meds Sertraline [Zoloft] 50 mg PO DAILY 02/26/18 [History] Famotidine 20 mg PO BID 01/26/21 [History] Hydroxychloroquine [Plaquenil] 200 mg PO BID 01/26/21 [History] buPROPion HCL [Bupropion Xl] 300 mg PO DAILY 01/26/21 [History] ondansetron HCL [Ondansetron HCl] 4 mg PO Q8H PRN 01/27/21 [History] Past Medical History HEENT History: Reports: None Other Cardiovascular History: raynauds syndrome. 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 Psychiatric History: Reports: Anxiety, Depression Hematologic History: Reports: Other (See Below) Other Hematologic History: hx of leukemia Oncologic (Cancer) History: Reports: Other (See Below) Other Oncologic History: Leukemia. - Past Surgical History GI Surgical History: Reports: Cholecystectomy Female Surgical History: Reports: Hysterectomy Musculoskeletal Surgical History: Reports: Knee Replacement, Other (See Below) Other Musculoskeletal Surgeries/Procedures:: Bilateral knee replacement. Social & Family History - Family History Family Medical History: No Pertinent Family History - Tobacco Use Tobacco Use Status *Q: Former Tobacco User Used Tobacco, but Quit: Yes Month/Year Tobacco Last Used: 40 yrs ago Second Hand Smoke Exposure: No - Caffeine Use Caffeine Use: Reports: Coffee Other Caffeine Use: 2 cups Qa.m. - Recreational Drug Use Recreational Drug Use: No H&P Review of Systems - Review of Systems: Review Of Systems: Comprehensive ROS is negative, except as noted in HPI. Exam - Exam Exam: See Below - Vital Signs Vital Signs: Last Vital Signs Temp 97.7 F 01/27/21 02:57 Pulse 98 01/27/21 02:57 Resp 20 01/27/21 02:57 BP 113/52 L 01/27/21 02:57 Pulse Ox 98 01/27/21 02:57 Weight: 60.645 kg - Exam Quality Assessment: No: Supplemental Oxygen General: Alert, Oriented HEENT: PERRLA, Conjunctiva Clear Neck: Supple Lungs: Clear to Auscultation Cardiovascular: Regular Rate, Regular Rhythm GI/Abdominal Exam: Normal Bowel Sounds, Soft (Female) Exam: Deferred Rectal (Female) Exam: Deferred Back Exam: Normal Inspection Extremities: Normal Inspection Skin: Warm, Dry Neurological: Cranial Nerves Intact Psychiatric: Alert, Normal Affect - Patient Data Lab Results Last 24 hrs: Laboratory Results - last 24 hr 01/26/21 01/26/21 01/26/21 Range/Units 13:15 13:15 13:15 WBC 6.3 (3.0-10.3) x10-3/uL RBC 2.36 L (3.60-5.20) x10(6)uL Hgb 7.6 L (11.4-15.5) g/dL Hct 23.0 L (34.2-48.2) % MCV 97.5 (76.7-100.5) fL MCH 32.2 (23.9-33.9) pg MCHC 33.0 (31.9-34.8) g/dL RDW 14.0 (12.3-16.5) % Plt Count 208 (151-488) x10(3)uL MPV 9.5 (7.1-12.4) fL Neut % (Auto) 70.3 (30.8-76.2) % Lymph % (Auto) 18.8 (18.4-52.1) % Vigo % (Auto) 8.9 (4.4-15.7) % Eos % (Auto) 1.0 (0.6-8.1) % Baso % (Auto) 1.0 (0.2-1.5) % Neut # (Auto) 4.4 (1.5-6.3) x10-3/uL Lymph # (Auto) 1.2 (1.0-4.4) x10-3/uL Vigo # (Auto) 0.6 (0.3-1.0) x10-3/uL Eos # (Auto) 0.1 (0.0-0.8) x10-3/uL Baso # (Auto) 0.1 (0.0-0.1) x10-3/uL PT 11.1 (9.0-11.1) sec INR 1.03 (1.00-1.24) Sodium 142 (135-145) mmol/L Potassium 4.3 (3.5-5.3) mmol/L Chloride 105 (100-110) mmol/L Carbon Dioxide 28 (21-32) mmol/L BUN 52 H (7-18) mg/dL Creatinine 1.1 H (0.55-1.02) mg/dL Est Cr Clr Drug Dosing TNP Estimated GFR (MDRD) 49 L (>60) BUN/Creatinine Ratio 47.3 H (9-20) Glucose 102 (80-116) mg/dL POC Glucose (80-116) mg/dL Calcium 9.7 (8.6-10.2) mg/dL Total Bilirubin 0.2 (0.1-1.3) mg/dL AST 38 H D (5-25) IU/L ALT 30 D (12-36) U/L Alkaline Phosphatase 158 H (56-112) IU/L Total Protein 6.1 (6.0-8.0) g/dL Albumin 2.6 L (3.2-4.6) g/dL Globulin 3.5 g/dL Albumin/Globulin Ratio 0.7 Amylase 39 (25-115) U/L Lipase (73-393) U/L Urine Color (YELLOW) Urine Appearance (CLEAR) Urine pH (5.0-6.5) Ur Specific Wayne (1.010-1.025) Urine Protein (NEGATIVE) mg/dL Urine Glucose (UA) (NORMAL) mg/dL Urine Ketones (NEGATIVE) mg/dL Urine Occult Blood (NEGATIVE) Urine Nitrite (NEGATIVE) Urine Bilirubin (NEGATIVE) Urine Urobilinogen (NEGATIVE) mg/dL Ur Leukocyte Esterase (NEGATIVE) Urine RBC (0-5) Urine WBC (0-5) Ur Squamous Epith Cells (NS,R,O) Urine Bacteria (NS) SARS-CoV-2 RNA (RUDY) (NEGATIVE) Blood Type Gel Antibody Screen Crossmatch 01/26/21 01/26/21 01/26/21 Range/Units 13:15 14:45 17:05 WBC (3.0-10.3) x10-3/uL RBC (3.60-5.20) x10(6)uL Hgb (11.4-15.5) g/dL Hct (34.2-48.2) % MCV (76.7-100.5) fL MCH (23.9-33.9) pg MCHC (31.9-34.8) g/dL RDW (12.3-16.5) % Plt Count (151-488) x10(3)uL MPV (7.1-12.4) fL Neut % (Auto) (30.8-76.2) % Lymph % (Auto) (18.4-52.1) % Vigo % (Auto) (4.4-15.7) % Eos % (Auto) (0.6-8.1) % Baso % (Auto) (0.2-1.5) % Neut # (Auto) (1.5-6.3) x10-3/uL Lymph # (Auto) (1.0-4.4) x10-3/uL Vigo # (Auto) (0.3-1.0) x10-3/uL Eos # (Auto) (0.0-0.8) x10-3/uL Baso # (Auto) (0.0-0.1) x10-3/uL PT (9.0-11.1) sec INR (1.00-1.24) Sodium (135-145) mmol/L Potassium (3.5-5.3) mmol/L Chloride (100-110) mmol/L Carbon Dioxide (21-32) mmol/L BUN (7-18) mg/dL Creatinine (0.55-1.02) mg/dL Est Cr Clr Drug Dosing Estimated GFR (MDRD) (>60) BUN/Creatinine Ratio (9-20) Glucose (80-116) mg/dL POC Glucose (80-116) mg/dL Calcium (8.6-10.2) mg/dL Total Bilirubin (0.1-1.3) mg/dL AST (5-25) IU/L ALT (12-36) U/L Alkaline Phosphatase (56-112) IU/L Total Protein (6.0-8.0) g/dL Albumin (3.2-4.6) g/dL Globulin g/dL Albumin/Globulin Ratio Amylase (25-115) U/L Lipase 100 (73-393) U/L Urine Color Yellow (YELLOW) Urine Appearance Clear (CLEAR) Urine pH 5.0 (5.0-6.5) Ur Specific Wayne 1.015 (1.010-1.025) Urine Protein Negative (NEGATIVE) mg/dL Urine Glucose (UA) Normal (NORMAL) mg/dL Urine Ketones Negative (NEGATIVE) mg/dL Urine Occult Blood Negative (NEGATIVE) Urine Nitrite Negative (NEGATIVE) Urine Bilirubin Small H (NEGATIVE) Urine Urobilinogen Normal (NEGATIVE) mg/dL Ur Leukocyte Esterase Small H (NEGATIVE) Urine RBC 0-5 (0-5) Urine WBC 0-5 (0-5) Ur Squamous Epith Cells Few H (NS,R,O) Urine Bacteria Rare H (NS) SARS-CoV-2 RNA (RUDY) Negative (NEGATIVE) Blood Type Gel Antibody Screen Crossmatch 01/26/21 01/26/21 01/26/21 Range/Units 18:45 18:45 22:53 WBC (3.0-10.3) x10-3/uL RBC (3.60-5.20) x10(6)uL Hgb 7.1 L (11.4-15.5) g/dL Hct (34.2-48.2) % MCV (76.7-100.5) fL MCH (23.9-33.9) pg MCHC (31.9-34.8) g/dL RDW (12.3-16.5) % Plt Count (151-488) x10(3)uL MPV (7.1-12.4) fL Neut % (Auto) (30.8-76.2) % Lymph % (Auto) (18.4-52.1) % Vigo % (Auto) (4.4-15.7) % Eos % (Auto) (0.6-8.1) % Baso % (Auto) (0.2-1.5) % Neut # (Auto) (1.5-6.3) x10-3/uL Lymph # (Auto) (1.0-4.4) x10-3/uL Vigo # (Auto) (0.3-1.0) x10-3/uL Eos # (Auto) (0.0-0.8) x10-3/uL Baso # (Auto) (0.0-0.1) x10-3/uL PT (9.0-11.1) sec INR (1.00-1.24) Sodium (135-145) mmol/L Potassium (3.5-5.3) mmol/L Chloride (100-110) mmol/L Carbon Dioxide (21-32) mmol/L BUN (7-18) mg/dL Creatinine (0.55-1.02) mg/dL Est Cr Clr Drug Dosing Estimated GFR (MDRD) (>60) BUN/Creatinine Ratio (9-20) Glucose (80-116) mg/dL POC Glucose 87 (80-116) mg/dL Calcium (8.6-10.2) mg/dL Total Bilirubin (0.1-1.3) mg/dL AST (5-25) IU/L ALT (12-36) U/L Alkaline Phosphatase (56-112) IU/L Total Protein (6.0-8.0) g/dL Albumin (3.2-4.6) g/dL Globulin g/dL Albumin/Globulin Ratio Amylase (25-115) U/L Lipase (73-393) U/L Urine Color (YELLOW) Urine Appearance (CLEAR) Urine pH (5.0-6.5) Ur Specific Wayne (1.010-1.025) Urine Protein (NEGATIVE) mg/dL Urine Glucose (UA) (NORMAL) mg/dL Urine Ketones (NEGATIVE) mg/dL Urine Occult Blood (NEGATIVE) Urine Nitrite (NEGATIVE) Urine Bilirubin (NEGATIVE) Urine Urobilinogen (NEGATIVE) mg/dL Ur Leukocyte Esterase (NEGATIVE) Urine RBC (0-5) Urine WBC (0-5) Ur Squamous Epith Cells (NS,R,O) Urine Bacteria (NS) SARS-CoV-2 RNA (RUDY) (NEGATIVE) Blood Type A POSITIVE Gel Antibody Screen Negative Crossmatch See Detail 01/27/21 01/27/21 Range/Units 06:05 07:25 WBC 4.6 (3.0-10.3) x10-3/uL RBC 2.56 L (3.60-5.20) x10(6)uL Hgb 8.0 L (11.4-15.5) g/dL Hct 24.4 L (34.2-48.2) % MCV 95.3 (76.7-100.5) fL MCH 31.4 (23.9-33.9) pg MCHC 32.9 (31.9-34.8) g/dL RDW 15.1 (12.3-16.5) % Plt Count 179 (151-488) x10(3)uL MPV (7.1-12.4) fL Neut % (Auto) (30.8-76.2) % Lymph % (Auto) (18.4-52.1) % Vigo % (Auto) (4.4-15.7) % Eos % (Auto) (0.6-8.1) % Baso % (Auto) (0.2-1.5) % Neut # (Auto) (1.5-6.3) x10-3/uL Lymph # (Auto) (1.0-4.4) x10-3/uL Vigo # (Auto) (0.3-1.0) x10-3/uL Eos # (Auto) (0.0-0.8) x10-3/uL Baso # (Auto) (0.0-0.1) x10-3/uL PT (9.0-11.1) sec INR (1.00-1.24) Sodium (135-145) mmol/L Potassium (3.5-5.3) mmol/L Chloride (100-110) mmol/L Carbon Dioxide (21-32) mmol/L BUN (7-18) mg/dL Creatinine (0.55-1.02) mg/dL Est Cr Clr Drug Dosing Estimated GFR (MDRD) (>60) BUN/Creatinine Ratio (9-20) Glucose (80-116) mg/dL POC Glucose 78 L (80-116) mg/dL Calcium (8.6-10.2) mg/dL Total Bilirubin (0.1-1.3) mg/dL AST (5-25) IU/L ALT (12-36) U/L Alkaline Phosphatase (56-112) IU/L Total Protein (6.0-8.0) g/dL Albumin (3.2-4.6) g/dL Globulin g/dL Albumin/Globulin Ratio Amylase (25-115) U/L Lipase (73-393) U/L Urine Color (YELLOW) Urine Appearance (CLEAR) Urine pH (5.0-6.5) Ur Specific Wayne (1.010-1.025) Urine Protein (NEGATIVE) mg/dL Urine Glucose (UA) (NORMAL) mg/dL Urine Ketones (NEGATIVE) mg/dL Urine Occult Blood (NEGATIVE) Urine Nitrite (NEGATIVE) Urine Bilirubin (NEGATIVE) Urine Urobilinogen (NEGATIVE) mg/dL Ur Leukocyte Esterase (NEGATIVE) Urine RBC (0-5) Urine WBC (0-5) Ur Squamous Epith Cells (NS,R,O) Urine Bacteria (NS) SARS-CoV-2 RNA (RUDY) (NEGATIVE) Blood Type Gel Antibody Screen Crossmatch Result Diagrams: 01/27/21 06:05 01/26/21 13:15 Dionte Results Last 24 hrs: Microbiology 01/26/21 18:20 Stool Occult Blood (DIONTE) - Final Stool / Feces Sepsis Event Note - Evaluation Sepsis Screening Result: No Definite Risk - Focused Exam Vital Signs: Vital Signs Temp Temp Pulse Resp BP Pulse Ox 01/27/21 02:57 97.7 F 97.7 F 98 20 113/52 L 98 01/27/21 01:57 98.7 F 96 20 123/56 L 01/26/21 22:54 98.1 F 88 20 92/48 L 01/26/21 22:39 98.1 F 80 20 106/46 L 01/26/21 21:54 98.8 F 78 16 107/55 L 99 - Problem List (1) Anemia SNOMED Code(s): 477318568 ICD Code: D64.9 - ANEMIA, UNSPECIFIED Status: Acute Current Visit: No (2) Abdominal pain SNOMED Code(s): 86912193 ICD Code: R10.9 - UNSPECIFIED ABDOMINAL PAIN Status: Acute Current Visit: Yes Qualifiers: Abdominal location: epigastric Qualified Code(s): R10.13 - Epigastric pain (3) Leukemia SNOMED Code(s): 57022306 ICD Code: C95.90 - LEUKEMIA, UNSPECIFIED NOT HAVING ACHIEVED REMISSION Status: Acute Current Visit: Yes Qualifiers: Leukemia type: unspecified (4) UGI bleed SNOMED Code(s): 52963344 ICD Code: K92.2 - GASTROINTESTINAL HEMORRHAGE, UNSPECIFIED Status: Acute Current Visit: No (5) Diabetes mellitus type 2 SNOMED Code(s): 41313887 ICD Code: E11.9 - TYPE 2 DIABETES MELLITUS WITHOUT COMPLICATIONS Status: Chronic Current Visit: No Problem Details: SSI (6) History of - depression SNOMED Code(s): 283491146 ICD Code: Z86.59 - PERSONAL HISTORY OF OTHER MENTAL AND BEHAVIORAL DISORDERS Status: Chronic Current Visit: No Problem Details: Continue meds Problem List Initiated/Reviewed/Updated: Yes Orders Last 24hrs: Active Orders 24 hr Category Date Time Status Admission Status [Patient Status] [ADT] Routine ADT 01/26/21 20:15 Active Blood Glucose Check, Bedside [RC] QIDACANDBED Care 01/26/21 20:25 Active Oxygen Therapy [RC] PRN Care 01/26/21 20:19 Active Vital Signs [RC] 08,12,16,20,00,04 Care 01/26/21 20:19 Active CULTURE URINE [RM] Stat Lab 01/26/21 14:35 Received .Bupropion Xl Med 01/27/21 09:00 Active 300 mg PO DAILY Acetaminophen [TylenoL] Med 01/26/21 20:25 Active 650 mg PO Q4H PRN Famotidine [Pepcid] Med 01/27/21 09:00 Active 20 mg PO BID Hydroxychloroquine [Plaquenil] Med 01/27/21 09:00 Active 200 mg PO BID Ondansetron [Zofran ODT] Med 01/26/21 23:44 Active 4 mg PO Q8H PRN Ondansetron [Zofran] Med 01/26/21 20:25 Active 4 mg IV Q4H PRN Sertraline [Zoloft] Med 01/27/21 21:00 Active 50 mg PO BEDTIME Sodium Chloride 0.9% [Normal Saline] 1,000 ml Med 01/26/21 16:30 Active IV ASDIRECTED Sodium Chloride 0.9% [Normal Saline] 250 ml Med 01/26/21 21:00 Active IV ASDIRECTED Sodium Chloride 0.9% [Saline Flush] Med 01/26/21 13:07 Active 10 ml FLUSH ASDIRECTED PRN Zolpidem [Ambien] Med 01/26/21 20:25 Active 5 mg PO BEDTIME PRN Transfuse PRBC [Transfuse Red Blood Cells] [COMM] Stat Oth 01/26/21 20:53 Ordered Resuscitation Status Routine Resus Stat 01/26/21 20:19 Ordered Medication Orders Acetaminophen (Acetaminophen 325 Mg Tab) 650 mg PO Q4H PRN PRN Reason: Pain (Mild 1-3)/fever Famotidine (Famotidine 20 Mg Tab *Ptom) 20 mg PO BID LUCI Hydroxychloroquine Sulfate (Hydroxychloroquine 200 Mg Tab *Ptom) 200 mg PO BID LUCI Sodium Chloride (Normal Saline) 1,000 mls @ 125 mls/hr IV ASDIRECTED LUCI Last Admin: 01/27/21 08:00 Dose: 125 mls/hr Documented by: Infusion: 01/27/21 00:33 Dose: 125 mls/hr Documented by: Admin: 01/26/21 16:33 Dose: 125 mls/hr Documented by: CELE Sodium Chloride (Normal Saline) 250 mls @ 100 mls/hr IV ASDIRECTED LUCI Bupropion Xl 300 Mg (*Ptom) 300 mg PO DAILY LUCI Ondansetron HCl (Ondansetron 4 Mg/2 Ml Sdv) 4 mg IV Q4H PRN PRN Reason: Nausea/Vomiting Ondansetron HCl (Ondansetron 4 Mg Tab.*Ptom) 4 mg PO Q8H PRN PRN Reason: Nausea Sertraline HCl (Sertraline 50 Mg Tab *Ptom) 50 mg PO BEDTIME LUCI Sodium Chloride (Sodium Chloride 0.9% 10 Ml Syringe) 10 ml FLUSH ASDIRECTED PRN PRN Reason: Keep Vein Open Zolpidem Tartrate (Zolpidem 5 Mg Tab) 5 mg PO BEDTIME PRN PRN Reason: Sleep Assessment/Plan Comment:: I will transfuse one more unit of PRBCs today. She very much prefers to stay in [facility] if possible,rather than [place]. I will consult General Surg[facility] for an EGD. I have restarted her PPI. NPO after midnight
[2021-01-27] MEDS: Famotidine 20 MG Tab *PTOM PO SCH ×2 (09:12→21:09)
[2021-01-27] MEDS: Hydroxychloroquine 200 MG Tab *PTOM PO SCH ×2 (09:13→21:09)
[2021-01-27] MEDS ORDERED: Ondansetron 4 MG Tab.DIS PO ONE ×2 (11:20→21:00)
[2021-01-27] MEDS: ONDANSETRON 4 MG PO PRN ×2 (11:22→21:07)
[2021-01-27] MEDS ORDERED: Sodium Chloride 0.9% 250 ML IV SCH (13:15)
[2021-01-27] MEDS ORDERED: Pantoprazole 40 MG Vial IVPUSH SCH (14:00)
--- NOTE | 2021-01-27 14:28 | PCM.SN.2 ---
- Free Text/Narrative Note: Asked by nurse to check IV site. IV site noted to have generalized swelling of upper Left arm. Patient states due to her scleroderma that her arms and feet swell, she has no complaints of pain in her left arm. When flushed site rapidly with 10cc's of saline, flushed with ease and no swelling at site noted. Nurses have attemptted IV access several times today without success and I attempted twice without success. I gave report to Kezia Sarmiento RN and said when using present site to give fluids slowly and to keep an eye on the site.
[2021-01-27] MEDS ORDERED: Sertraline 50 MG Tab *PTOM PO SCH (21:00)
--- NOTE | 2021-01-28 08:49 | PCM.PN ---
- General Info Date of Service: 01/28/21 Admission Dx/Problem (Free Text): Patient states she feels good other than she's got some epigastric pain. When she eats causes a little bit more pain. She's been having melena stools but the last one was yesterday. She's had no vomiting or hematemesis recently. She denies lightheadedness, dizziness, palpitations, fevers, chills. - Patient Data Vitals - Most Recent: Last Vital Signs Temp 97.8 F 01/28/21 08:00 Pulse 82 01/28/21 08:00 Resp 19 01/28/21 08:00 BP 127/60 01/28/21 08:00 Pulse Ox 97 01/28/21 08:00 Weight - Most Recent: 133 lb 11.2 oz I&O - Last 24 Hours: Intake & Output 01/27/21 01/28/21 01/28/21 22:59 06:59 14:59 Intake Total 290 Balance 290 Lab Results Last 24 Hours: Laboratory Results - last 24 hr 01/26/21 01/27/21 01/28/21 Range/Units 18:45 21:46 06:30 WBC 5.2 (3.0-10.3) x10-3/uL RBC 3.44 L (3.60-5.20) x10(6)uL Hgb 10.5 L (11.4-15.5) g/dL Hct 32.6 L (34.2-48.2) % MCV 94.7 (76.7-100.5) fL MCH 30.6 (23.9-33.9) pg MCHC 32.4 (31.9-34.8) g/dL RDW 16.4 (12.3-16.5) % Plt Count 171 (151-488) x10(3)uL MPV 10.0 (7.1-12.4) fL Neut % (Auto) 65.2 (30.8-76.2) % Lymph % (Auto) 22.2 (18.4-52.1) % [place] % (Auto) 7.5 (4.4-15.7) % Eos % (Auto) 4.7 (0.6-8.1) % Baso % (Auto) 0.4 (0.2-1.5) % Neut # (Auto) 3.4 (1.5-6.3) x10-3/uL Lymph # (Auto) 1.2 (1.0-4.4) x10-3/uL [place] # (Auto) 0.4 (0.3-1.0) x10-3/uL Eos # (Auto) 0.2 (0.0-0.8) x10-3/uL Baso # (Auto) 0.0 (0.0-0.1) x10-3/uL Sodium (135-145) mmol/L Potassium (3.5-5.3) mmol/L Chloride (100-110) mmol/L Carbon Dioxide (21-32) mmol/L BUN (7-18) mg/dL Creatinine (0.55-1.02) mg/dL Est Cr Clr Drug Dosing mL/min Estimated GFR (MDRD) (>60) BUN/Creatinine Ratio (9-20) Glucose (80-116) mg/dL POC Glucose 92 (80-116) mg/dL Calcium (8.6-10.2) mg/dL Blood Type A POSITIVE Gel Antibody Screen Negative Crossmatch See Detail 01/28/21 Range/Units 06:30 WBC (3.0-10.3) x10-3/uL RBC (3.60-5.20) x10(6)uL Hgb (11.4-15.5) g/dL Hct (34.2-48.2) % MCV (76.7-100.5) fL MCH (23.9-33.9) pg MCHC (31.9-34.8) g/dL RDW (12.3-16.5) % Plt Count (151-488) x10(3)uL MPV (7.1-12.4) fL Neut % (Auto) (30.8-76.2) % Lymph % (Auto) (18.4-52.1) % [place] % (Auto) (4.4-15.7) % Eos % (Auto) (0.6-8.1) % Baso % (Auto) (0.2-1.5) % Neut # (Auto) (1.5-6.3) x10-3/uL Lymph # (Auto) (1.0-4.4) x10-3/uL [place] # (Auto) (0.3-1.0) x10-3/uL Eos # (Auto) (0.0-0.8) x10-3/uL Baso # (Auto) (0.0-0.1) x10-3/uL Sodium 143 (135-145) mmol/L Potassium 3.7 (3.5-5.3) mmol/L Chloride 108 (100-110) mmol/L Carbon Dioxide 26 (21-32) mmol/L BUN 21 H D (7-18) mg/dL Creatinine 1.0 (0.55-1.02) mg/dL Est Cr Clr Drug Dosing 44.41 mL/min Estimated GFR (MDRD) 54 L (>60) BUN/Creatinine Ratio 21.0 H (9-20) Glucose 89 (80-116) mg/dL POC Glucose (80-116) mg/dL Calcium 9.4 (8.6-10.2) mg/dL Blood Type Gel Antibody Screen Crossmatch Dionte Results Last 24 Hours: Microbiology 01/26/21 14:35 Urine Culture - Preliminary Urine, Clean Catch NO GROWTH AFTER 1 DAY Med Orders - Current: Current Medications Acetaminophen (Acetaminophen 325 Mg Tab) 650 mg PO Q4H PRN PRN Reason: Pain (Mild 1-3)/fever Famotidine (Famotidine 20 Mg Tab *Ptom) 20 mg PO BID [facility] Last Admin: 01/27/21 21:09 Dose: 20 mg Documented by: Hydroxychloroquine Sulfate (Hydroxychloroquine 200 Mg Tab *Ptom) 200 mg PO BID [facility] Last Admin: 01/27/21 21:09 Dose: 200 mg Documented by: Sodium Chloride (Normal Saline) 250 mls @ 100 mls/hr IV ASDIRECTED [facility] Sodium Chloride (Normal Saline) 250 mls @ 100 mls/hr IV ASDIRECTED [facility] Last Admin: 01/27/21 16:20 Dose: 100 mls/hr Documented by: Bupropion Xl 300 Mg (*Ptom) 300 mg PO DAILY [facility] Last Admin: 01/27/21 09:12 Dose: 300 mg Documented by: Ondansetron HCl (Ondansetron 4 Mg/2 Ml Sdv) 4 mg IV Q4H PRN PRN Reason: Nausea/Vomiting Last Admin: 01/27/21 23:06 Dose: 4 mg Documented by: Ondansetron HCl (Ondansetron 4 Mg Tab.*Ptom) 4 mg PO Q8H PRN PRN Reason: Nausea Last Admin: 01/27/21 21:07 Dose: 4 mg Documented by: Pantoprazole Sodium (Pantoprazole 40 Mg Vial) 40 mg IVPUSH Q24H [facility] Last Admin: 01/27/21 14:46 Dose: 40 mg Documented by: Sertraline HCl (Sertraline 50 Mg Tab *Ptom) 50 mg PO BEDTIME [facility] Last Admin: 01/27/21 21:09 Dose: 50 mg Documented by: Sodium Chloride (Sodium Chloride 0.9% 10 Ml Syringe) 10 ml FLUSH ASDIRECTED PRN PRN Reason: Keep Vein Open Last Admin: 01/27/21 14:46 Dose: 10 ml Documented by: Zolpidem Tartrate (Zolpidem 5 Mg Tab) 5 mg PO BEDTIME PRN PRN Reason: Sleep Discontinued Medications Atorvastatin Calcium (Atorvastatin 20 Mg Tab) 20 mg PO BEDTIME [facility] Last Admin: 01/27/21 02:10 Dose: Not Given Documented by: Sodium Chloride (Normal Saline) 1,000 mls @ 999 drops/hr IV .BOLUS ONE Stop: 01/27/21 04:06 Last Admin: 01/26/21 13:10 Dose: 999 drops/hr Documented by: Sodium Chloride (Normal Saline) 1,000 mls @ 125 mls/hr IV ASDIRECTED [facility] Last Admin: 01/27/21 08:00 Dose: 125 mls/hr Documented by: Iopamidol (Iopamidol 755 Mg/Ml 75 Ml Bottle) 75 ml IV ASDIRECTED ONE Stop: 01/26/21 13:56 Last Admin: 01/26/21 14:24 Dose: 75 ml Documented by: Losartan Potassium (Losartan 25 Mg Tab) 25 mg PO DAILY [facility] Metformin HCl (Metformin 500 Mg Tab) 500 mg PO BID [facility] Last Admin: 01/27/21 02:09 Dose: Not Given Documented by: Non-Formulary Medication (Imatinib [Gleevec]) 200 mg PO BID [facility] Last Admin: 01/27/21 02:09 Dose: Not Given Documented by: Ondansetron HCl (Ondansetron 4 Mg/2 Ml Sdv) 4 mg IVPUSH ONETIME ONE Stop: 01/26/21 13:07 Last Admin: 01/26/21 13:34 Dose: 4 mg Documented by: Pantoprazole Sodium (Pantoprazole 40 Mg Vial) 80 mg IVPUSH .BOLUS ONE Stop: 01/26/21 13:06 Last Admin: 01/26/21 13:34 Dose: 80 mg Documented by: Sertraline HCl (Sertraline 100 Mg Tab) 100 mg PO DAILY [facility] Sertraline HCl (Sertraline 100 Mg Tab) 50 mg PO BEDTIME [facility] Last Admin: 01/26/21 23:29 Dose: Not Given Documented by: - Exam General: Alert, Oriented Neck: Supple Lungs: Clear to Auscultation, Normal Respiratory Effort Cardiovascular: Regular Rate, Regular Rhythm, No Murmurs GI/Abdominal Exam: Normal Bowel Sounds, Soft, Tender (Epigastrium to palpation) Extremities: No Pedal Edema - Patient Data Lab Results Last 24 hrs: Laboratory Results - last 24 hr 01/26/21 01/27/21 01/28/21 Range/Units 18:45 21:46 06:30 WBC 5.2 (3.0-10.3) x10-3/uL RBC 3.44 L (3.60-5.20) x10(6)uL Hgb 10.5 L (11.4-15.5) g/dL Hct 32.6 L (34.2-48.2) % MCV 94.7 (76.7-100.5) fL MCH 30.6 (23.9-33.9) pg MCHC 32.4 (31.9-34.8) g/dL RDW 16.4 (12.3-16.5) % Plt Count 171 (151-488) x10(3)uL MPV 10.0 (7.1-12.4) fL Neut % (Auto) 65.2 (30.8-76.2) % Lymph % (Auto) 22.2 (18.4-52.1) % [place] % (Auto) 7.5 (4.4-15.7) % Eos % (Auto) 4.7 (0.6-8.1) % Baso % (Auto) 0.4 (0.2-1.5) % Neut # (Auto) 3.4 (1.5-6.3) x10-3/uL Lymph # (Auto) 1.2 (1.0-4.4) x10-3/uL [place] # (Auto) 0.4 (0.3-1.0) x10-3/uL Eos # (Auto) 0.2 (0.0-0.8) x10-3/uL Baso # (Auto) 0.0 (0.0-0.1) x10-3/uL Sodium (135-145) mmol/L Potassium (3.5-5.3) mmol/L Chloride (100-110) mmol/L Carbon Dioxide (21-32) mmol/L BUN (7-18) mg/dL Creatinine (0.55-1.02) mg/dL Est Cr Clr Drug Dosing mL/min Estimated GFR (MDRD) (>60) BUN/Creatinine Ratio (9-20) Glucose (80-116) mg/dL POC Glucose 92 (80-116) mg/dL Calcium (8.6-10.2) mg/dL Blood Type A POSITIVE Gel Antibody Screen Negative Crossmatch See Detail 01/28/21 Range/Units 06:30 WBC (3.0-10.3) x10-3/uL RBC (3.60-5.20) x10(6)uL Hgb (11.4-15.5) g/dL Hct (34.2-48.2) % MCV (76.7-100.5) fL MCH (23.9-33.9) pg MCHC (31.9-34.8) g/dL RDW (12.3-16.5) % Plt Count (151-488) x10(3)uL MPV (7.1-12.4) fL Neut % (Auto) (30.8-76.2) % Lymph % (Auto) (18.4-52.1) % [place] % (Auto) (4.4-15.7) % Eos % (Auto) (0.6-8.1) % Baso % (Auto) (0.2-1.5) % Neut # (Auto) (1.5-6.3) x10-3/uL Lymph # (Auto) (1.0-4.4) x10-3/uL [place] # (Auto) (0.3-1.0) x10-3/uL Eos # (Auto) (0.0-0.8) x10-3/uL Baso # (Auto) (0.0-0.1) x10-3/uL Sodium 143 (135-145) mmol/L Potassium 3.7 (3.5-5.3) mmol/L Chloride 108 (100-110) mmol/L Carbon Dioxide 26 (21-32) mmol/L BUN 21 H D (7-18) mg/dL Creatinine 1.0 (0.55-1.02) mg/dL Est Cr Clr Drug Dosing 44.41 mL/min Estimated GFR (MDRD) 54 L (>60) BUN/Creatinine Ratio 21.0 H (9-20) Glucose 89 (80-116) mg/dL POC Glucose (80-116) mg/dL Calcium 9.4 (8.6-10.2) mg/dL Blood Type Gel Antibody Screen Crossmatch Result Diagrams: 01/28/21 06:30 01/28/21 06:30 Dionte Results Last 24 hrs: Microbiology 01/26/21 14:35 Urine Culture - Preliminary Urine, Clean Catch NO GROWTH AFTER 1 DAY Sepsis Event Note - Evaluation Sepsis Screening Result: No Definite Risk - Focused Exam Vital Signs: Vital Signs Temp Pulse Resp BP Pulse Ox 01/28/21 08:00 97.8 F 82 19 127/60 97 01/28/21 04:00 97.8 F 90 18 126/63 100 - Problem List & Annotations (1) Gastritis SNOMED Code(s): 5231104 Code(s): K29.70 - GASTRITIS, UNSPECIFIED, WITHOUT BLEEDING Status: Acute Current Visit: Yes (2) Palliative care status SNOMED Code(s): 224219224 Code(s): Z51.5 - ENCOUNTER FOR PALLIATIVE CARE Status: Acute Current Visit: Yes (3) Leukemia SNOMED Code(s): 14108103 Code(s): C95.90 - LEUKEMIA, UNSPECIFIED NOT HAVING ACHIEVED REMISSION Status: Acute Current Visit: Yes Qualifiers: Leukemia type: unspecified (4) Anemia SNOMED Code(s): 345829194 Code(s): D64.9 - ANEMIA, UNSPECIFIED Status: Acute Current Visit: No (5) UGI bleed SNOMED Code(s): 37614666 Code(s): K92.2 - GASTROINTESTINAL HEMORRHAGE, UNSPECIFIED Status: Acute Current Visit: No - Problem List Review Problem List Initiated/Reviewed/Updated: Yes - Plan Plan:: I. Patient was given 1 unit transfusion yesterday and her hemoglobin went from 8 to10.5. 2. EGD today. Further plans will be assessed after she has the EGD.
--- NOTE | 2021-01-28 12:57 | PCM.OPNOTE ---
- General Post-Op/Procedure Note Operative Procedure(s): EGD Findings: No source of bleeding seen Pre Op Diagnosis: GI bleed Post-Op Diagnosis: Same Anesthesia Technique: MAC Primary Surgeon: Mason Hays Complications: None Condition: Good Free Text/Narrative:: Intake & Output 01/27/21 01/28/21 01/28/21 22:59 06:59 14:59 Intake Total 290 Balance 290
--- NOTE | 2021-01-28 15:17 | PCM.DCSUM1 ---
Discharge Summary - Hospital Course Free Text/Narrative:: Hospital course-patient was admitted and found to be anemic. She was given 1 unit of RBCs. Protonix an H2 kiana were started. Patient's hemoglobin was repeated and it went from in the sevens 08/02. She was given another unit of RBCs. And Dr. Hays was consult. Patient had some abdominal pain. He did that EGD shows esophagitis and some retained food in the duodenum. Patient was able to eat and her bleeding stopped. She had some but melena stools but they got better. She had no vomiting with coffee-ground emesis. She has no dizziness or weakness. She says she just received multiple iron infusions from her oncologist. We'll discharged home and place her back on her Prilose. She'll follow-up with her prior provider in one week. I told her the results of her scope as Dr. Hays told him to me. Brief History: Dominga is a pleasant 75-year-old female admitted through the ED, with coffee ground emesis, anemia, generalized weakness. She presented with upper abdominal pain for 3 days that was colicky in nature, associated with coffee-ground emesis and black tarry stools. She does not of history of PUD, and previously took omeprazole which was discontinued a month ago by her oncologist. She goes to [facility], and is being treated for leukemia. This morning she has received 1 unit of PRBCs, complains of feeling hungry and tired. Upper Mid- Anterior Abdomen Diagnosis: Stroke: No - Discharge Data Discharge Date: 01/28/21 Discharge Disposition: Home, Self-Care 01 Condition: Good - Referral to Home Health Primary Care Physician: Susanna Avery NP - Discharge Diagnosis/Problem(s) (1) Palliative care status SNOMED Code(s): 560262670 ICD Code: Z51.5 - ENCOUNTER FOR PALLIATIVE CARE Status: Acute Current Visit: Yes (2) Leukemia SNOMED Code(s): 27217473 ICD Code: C95.90 - LEUKEMIA, UNSPECIFIED NOT HAVING ACHIEVED REMISSION Status: Acute Current Visit: Yes Qualifiers: Leukemia type: unspecified (3) Anemia SNOMED Code(s): 150459980 ICD Code: D64.9 - ANEMIA, UNSPECIFIED Status: Acute Current Visit: No (4) UGI bleed SNOMED Code(s): 37643330 ICD Code: K92.2 - GASTROINTESTINAL HEMORRHAGE, UNSPECIFIED Status: Acute Current Visit: No (5) Esophagitis SNOMED Code(s): 81889069 ICD Code: K20.90 - ESOPHAGITIS, UNSPECIFIED WITHOUT BLEEDING Status: Acute Current Visit: Yes - Patient Summary/Data Operative Procedure(s) Performed: EGD - Patient Instructions Diet: Regular Diet as Tolerated Activity: As Tolerated Driving: May Drive Today Showering/Bathing: May Shower Notify Provider of: Increased Pain Other/Special Instructions: Recheck with Susanna Garcia in one week with a CBC. - Discharge Plan Prescriptions/Med Rec: Omeprazole 20 mg PO DAILY #90 tablet. Home Medications: Home Meds Sertraline [Zoloft] 50 mg PO DAILY 02/26/18 [History] Hydroxychloroquine [Plaquenil] 200 mg PO BID 01/26/21 [History] buPROPion HCL [Bupropion Xl] 300 mg PO DAILY 01/26/21 [History] ondansetron HCL [Ondansetron HCl] 4 mg PO Q8H PRN 01/27/21 [History] Omeprazole 20 mg PO DAILY #90 tablet. 01/28/21 [Rx] Forms: ED Department Discharge Referrals: PCP,Unknown [Ordering Only Provider] - - Discharge Summary/Plan Comment DC Time >30 min.: No - Patient Data Vitals - Most Recent: Last Vital Signs Temp 97.5 F 01/28/21 13:30 Pulse 93 01/28/21 14:05 Resp 18 01/28/21 14:05 BP 125/69 01/28/21 14:05 Pulse Ox 100 01/28/21 14:05 Weight - Most Recent: 133 lb 11.2 oz Lab Results - Last 24 hrs: Laboratory Results - last 24 hr 01/26/21 01/27/21 01/28/21 Range/Units 18:45 21:46 06:30 WBC 5.2 (3.0-10.3) x10-3/uL RBC 3.44 L (3.60-5.20) x10(6)uL Hgb 10.5 L (11.4-15.5) g/dL Hct 32.6 L (34.2-48.2) % MCV 94.7 (76.7-100.5) fL MCH 30.6 (23.9-33.9) pg MCHC 32.4 (31.9-34.8) g/dL RDW 16.4 (12.3-16.5) % Plt Count 171 (151-488) x10(3)uL MPV 10.0 (7.1-12.4) fL Neut % (Auto) 65.2 (30.8-76.2) % Lymph % (Auto) 22.2 (18.4-52.1) % [place] % (Auto) 7.5 (4.4-15.7) % Eos % (Auto) 4.7 (0.6-8.1) % Baso % (Auto) 0.4 (0.2-1.5) % Neut # (Auto) 3.4 (1.5-6.3) x10-3/uL Lymph # (Auto) 1.2 (1.0-4.4) x10-3/uL [place] # (Auto) 0.4 (0.3-1.0) x10-3/uL Eos # (Auto) 0.2 (0.0-0.8) x10-3/uL Baso # (Auto) 0.0 (0.0-0.1) x10-3/uL Sodium (135-145) mmol/L Potassium (3.5-5.3) mmol/L Chloride (100-110) mmol/L Carbon Dioxide (21-32) mmol/L BUN (7-18) mg/dL Creatinine (0.55-1.02) mg/dL Est Cr Clr Drug Dosing mL/min Estimated GFR (MDRD) (>60) BUN/Creatinine Ratio (9-20) Glucose (80-116) mg/dL POC Glucose 92 (80-116) mg/dL Calcium (8.6-10.2) mg/dL Blood Type A POSITIVE Gel Antibody Screen Negative Crossmatch See Detail 01/28/21 Range/Units 06:30 WBC (3.0-10.3) x10-3/uL RBC (3.60-5.20) x10(6)uL Hgb (11.4-15.5) g/dL Hct (34.2-48.2) % MCV (76.7-100.5) fL MCH (23.9-33.9) pg MCHC (31.9-34.8) g/dL RDW (12.3-16.5) % Plt Count (151-488) x10(3)uL MPV (7.1-12.4) fL Neut % (Auto) (30.8-76.2) % Lymph % (Auto) (18.4-52.1) % [place] % (Auto) (4.4-15.7) % Eos % (Auto) (0.6-8.1) % Baso % (Auto) (0.2-1.5) % Neut # (Auto) (1.5-6.3) x10-3/uL Lymph # (Auto) (1.0-4.4) x10-3/uL [place] # (Auto) (0.3-1.0) x10-3/uL Eos # (Auto) (0.0-0.8) x10-3/uL Baso # (Auto) (0.0-0.1) x10-3/uL Sodium 143 (135-145) mmol/L Potassium 3.7 (3.5-5.3) mmol/L Chloride 108 (100-110) mmol/L Carbon Dioxide 26 (21-32) mmol/L BUN 21 H D (7-18) mg/dL Creatinine 1.0 (0.55-1.02) mg/dL Est Cr Clr Drug Dosing 44.41 mL/min Estimated GFR (MDRD) 54 L (>60) BUN/Creatinine Ratio 21.0 H (9-20) Glucose 89 (80-116) mg/dL POC Glucose (80-116) mg/dL Calcium 9.4 (8.6-10.2) mg/dL Blood Type Gel Antibody Screen Crossmatch [facility] Results - Last 24 hrs: Microbiology 01/26/21 14:35 Urine Culture - Preliminary Urine, Clean Catch NO GROWTH AFTER 1 DAY Med Orders - Current: Current Medications Acetaminophen (Acetaminophen 325 Mg Tab) 650 mg PO Q4H PRN PRN Reason: Pain (Mild 1-3)/fever Famotidine (Famotidine 20 Mg Tab *Ptom) 20 mg PO BID [facility] Last Admin: 01/27/21 21:09 Dose: 20 mg Documented by: Hydroxychloroquine Sulfate (Hydroxychloroquine 200 Mg Tab *Ptom) 200 mg PO BID [facility] Last Admin: 01/27/21 21:09 Dose: 200 mg Documented by: Sodium Chloride (Normal Saline) 250 mls @ 100 mls/hr IV ASDIRECTED [facility] Sodium Chloride (Normal Saline) 250 mls @ 100 mls/hr IV ASDIRECTED [facility] Last Admin: 01/27/21 16:20 Dose: 100 mls/hr Documented by: Bupropion Xl 300 Mg (*Ptom) 300 mg PO DAILY [facility] Last Admin: 01/27/21 09:12 Dose: 300 mg Documented by: Ondansetron HCl (Ondansetron 4 Mg/2 Ml Sdv) 4 mg IV Q4H PRN PRN Reason: Nausea/Vomiting Last Admin: 01/27/21 23:06 Dose: 4 mg Documented by: Ondansetron HCl (Ondansetron 4 Mg Tab.*Ptom) 4 mg PO Q8H PRN PRN Reason: Nausea Last Admin: 01/27/21 21:07 Dose: 4 mg Documented by: Pantoprazole Sodium (Pantoprazole 40 Mg Vial) 40 mg IVPUSH Q24H [facility] Last Admin: 01/27/21 14:46 Dose: 40 mg Documented by: Sertraline HCl (Sertraline 50 Mg Tab *Ptom) 50 mg PO BEDTIME [facility] Last Admin: 01/27/21 21:09 Dose: 50 mg Documented by: Sodium Chloride (Sodium Chloride 0.9% 10 Ml Syringe) 10 ml FLUSH ASDIRECTED PRN PRN Reason: Keep Vein Open Last Admin: 01/27/21 14:46 Dose: 10 ml Documented by: Zolpidem Tartrate (Zolpidem 5 Mg Tab) 5 mg PO BEDTIME PRN PRN Reason: Sleep Discontinued Medications Atorvastatin Calcium (Atorvastatin 20 Mg Tab) 20 mg PO BEDTIME [facility] Last Admin: 01/27/21 02:10 Dose: Not Given Documented by: Sodium Chloride (Normal Saline) 1,000 mls @ 999 drops/hr IV .BOLUS ONE Stop: 01/27/21 04:06 Last Admin: 01/26/21 13:10 Dose: 999 drops/hr Documented by: Sodium Chloride (Normal Saline) 1,000 mls @ 125 mls/hr IV ASDIRECTED [facility] Last Admin: 01/27/21 08:00 Dose: 125 mls/hr Documented by: Iopamidol (Iopamidol 755 Mg/Ml 75 Ml Bottle) 75 ml IV ASDIRECTED ONE Stop: 01/26/21 13:56 Last Admin: 01/26/21 14:24 Dose: 75 ml Documented by: Losartan Potassium (Losartan 25 Mg Tab) 25 mg PO DAILY [facility] Metformin HCl (Metformin 500 Mg Tab) 500 mg PO BID [facility] Last Admin: 01/27/21 02:09 Dose: Not Given Documented by: Non-Formulary Medication (Imatinib [Gleevec]) 200 mg PO BID [facility] Last Admin: 01/27/21 02:09 Dose: Not Given Documented by: Ondansetron HCl (Ondansetron 4 Mg/2 Ml Sdv) 4 mg IVPUSH ONETIME ONE Stop: 01/26/21 13:07 Last Admin: 01/26/21 13:34 Dose: 4 mg Documented by: Pantoprazole Sodium (Pantoprazole 40 Mg Vial) 80 mg IVPUSH .BOLUS ONE Stop: 01/26/21 13:06 Last Admin: 01/26/21 13:34 Dose: 80 mg Documented by: Sertraline HCl (Sertraline 100 Mg Tab) 100 mg PO DAILY [facility] Sertraline HCl (Sertraline 100 Mg Tab) 50 mg PO BEDTIME [facility] Last Admin: 01/26/21 23:29 Dose: Not Given Documented by:
--- NOTE | 2021-01-31 06:46 | OR ---
DATE OF OPERATION: 01/28/2021 SURGEON: Mason Hays MD PREOPERATIVE DIAGNOSIS: Gastrointestinal bleed with melena. POSTOPERATIVE DIAGNOSIS: Distal esophagitis, no source of bleeding identified. PROCEDURE: Esophagogastroduodenoscopy. ANESTHESIA: MAC. DESCRIPTION OF PROCEDURE: The patient was brought to the procedure room where she was given IV sedation. Oral bite block was placed and she was positioned on her left side. Upper endoscope was advanced into the esophagus under direct vision without difficulty. Thick secretions were in the back of the throat that were suctioned. There was some old food remaining in the esophagus that was pushed forward. Distal esophagus does have some evidence of superficial erosions and esophagitis, but no source of bleeding identified. The scope was advanced to the stomach and again some old food identified. The fundus, antrum, and body all appear relatively normal with no source of bleeding identified. I do not see any ulcers or erosions or old blood. I then passed the scope into the duodenum, which has significant amount of old food present in it. I did not visualize the surfaces well, but again there was no source of bleeding identified or evidence of recent bleeding. Air was removed and the scope withdrawn. The patient tolerated the procedure well and returned to Recovery in stable condition. /[id number] 140 ZBIGNIEW/BRIANA
== END 2021-01-28 15:43 | disposition home or self-care (01) ==
LOC: FB.ED 12:56 → FB.MS 20:12
PROVIDERS: ADMIT Emergency Medicine; ATTEND Family Medicine
DX: K92.2 Gastrointestinal hemorrhage, unspecified (principal); D64.9 Anemia, unspecified; Z88.0 Allergy status to penicillin; Z88.5 Allergy status to narcotic agent; Z88.1 Allergy status to other antibiotic agents; Z88.6 Allergy status to analgesic agent; Z79.82 Long term (current) use of aspirin; Z79.84 Long term (current) use of oral hypoglycemic drugs; Z79.899 Other long term (current) drug therapy; Z20.822 Contact with and (suspected) exposure to COVID-19
CPT/HCPCS: 36410; 36415; 36430; 71045; 74177; 80048; 80053; 81001; 82150; 82272; 82947; 83690; 85018; 85025; 85027; 85610; 86850; 86900; 86901; 86920; 86922; 87086; 96374; 96375; 96376; 99285; A9270; C9113; G0378; J2405; J2704; J3490; J7030; J7050; P9016; Q9967; U0002

== ENCOUNTER 2021-09-20 22:46 | Emergency (ER) | payer MEDICARE | END 2021-09-21 01:25 | disposition home or self-care (01) | LOC: FB.ED 22:46 | DX: S06.5X0A Traumatic subdural hemorrhage without loss of consciousness, initial encounter (principal); Z88.1 Allergy status to other antibiotic agents; Z88.0 Allergy status to penicillin; Z88.5 Allergy status to narcotic agent; Z79.899 Other long term (current) drug therapy; W01.0XXA Fall on same level from slipping, tripping and stumbling without subsequent striking against object, initial encounter | CPT/HCPCS: 12011; 70450; 70486; 99283; 99284-25 ==

== ENCOUNTER 2023-04-26 02:11 | Emergency (ER) | payer MEDICARE ==
[2023-04-26] MEDS ORDERED: Aspirin 81 MG Tab.Chew PO ONE (02:23)
[2023-04-26 02:59] LABS: BASOPHILS PERCENT AUTO 0.5 % (0.2-1.5); EOSINOPHILS ABSOLUTE AUTO 0.2 x10-3/uL (0.0-0.8); EOSINOPHILS PERCENT AUTO 2.7 % (0.6-8.1); HEMATOCRIT 37.9 % (34.2-48.2); HEMOGLOBIN 12.6 g/dL (11.4-15.5); LYMPHOCYTES ABSOLUTE AUTO 1.9 x10-3/uL (1.0-4.4); MEAN CORPUSCULAR HEMOGLOBIN 29.9 pg (23.9-33.9); MEAN CORPUSCULAR HGB CONC 33.2 g/dL (31.9-34.8); MEAN CORPUSCULAR VOLUME 90.1 fL (76.7-100.5); MEAN PLATELET VOLUME 10.3 fL (7.1-12.4); MONOCYTES ABSOLUTE AUTO 0.5 x10-3/uL (0.3-1.0); MONOCYTES PERCENT AUTO 9.2 % (4.4-15.7); NEUTROPHILS ABSOLUTE AUTO 3.1 x10-3/uL (1.5-6.3); NEUTROPHILS PERCENT AUTO 54.6 % (30.8-76.2); PLATELET COUNT,PLT 169 x10(3)uL (151-488); RED BLOOD CELL COUNT 4.21 x10(6)uL (3.60-5.20); RED CELL DISTRIBUTION WIDTH 13.6 % (12.3-16.5); WHITE BLOOD CELL COUNT,WBC 5.7 x10-3/uL (3.0-10.3)
[2023-04-26 03:09] LABS: BLOOD UREA NITROGEN,BUN 26 mg/dL (7-18)
[2023-04-26 03:15] LABS: A/G RATIO 0.7; ALBUMIN 3.3 g/dL (3.2-4.6)
[2023-04-26 03:20] LABS: C-REACTIVE PROTEIN 0.22 mg/dL (<0.33)
[2023-04-26 03:22] LABS: CALCIUM 10.1 mg/dL (8.6-10.2); CARBON DIOXIDE,CO2 27 mmol/L (21-32); CHLORIDE,CL 104 mmol/L (100-110); ESTIMATED GFR 58 mL/min (>60); GLUCOSE RANDOM 107 mg/dL (80-116); POTASSIUM,K 3.8 mmol/L (3.5-5.3); SODIUM,NA 141 mmol/L (135-145)
[2023-04-26 03:28] LABS: TROPONIN I 304.7 pg/mL (4.0-60.3)
[2023-04-26 03:33] LABS: ALANINE AMINOTRANSFERASE,ALT 21 U/L (12-36); ALKALINE PHOSPHATASE 81 IU/L (56-112); ASPARTATE AMNIOTRANSFERASE,AST 25 IU/L (5-25); BILIRUBIN TOTAL 0.3 mg/dL (0.1-1.3)
[2023-04-26 03:45] LABS: INR 1.06 (1.00-1.24); PROTHROMBIN TIME 10.9 sec (9.0-11.1)
[2023-04-26] MEDS ORDERED: Nitroglycerin/D5W 25 MG/250 ML BOTTLE IV SCH (03:45)
[2023-04-26] MEDS ORDERED: Heparin Sodium/0.45% NaCl 25,000 UNITS/500 ML BAG IV SCH (03:45)
[2023-04-26 03:56] LABS: INFLUENZA A NAA NEGATIVE (NEGATIVE); INFLUENZA B NAA NEGATIVE (NEGATIVE); RESPIRATORY SYNCYTIAL VIR NAA NEGATIVE (NEGATIVE)
[2023-04-26 03:57] LABS: CORONAVIRUS COVID-19 NAA NEGATIVE (NEGATIVE)
[2023-04-26] MEDS: Ticagrelor 90 MG Tab PO ONE ×2 (04:02→04:18)
[2023-04-26] MEDS ORDERED: Sodium Chloride 0.9% 1,000 ML IV ONE (04:21)
[2023-04-26] MEDS ORDERED: Heparin Sodium 5,000 Units/ML Vial IVPUSH ONE (04:24)
== END 2023-04-26 07:00 ==
LOC: FB.ED 02:11
DX: I21.4 Non-ST elevation (NSTEMI) myocardial infarction (principal); E86.0 Dehydration; R79.1 Abnormal coagulation profile; N17.8 Other acute kidney failure; D84.9 Immunodeficiency, unspecified; Z20.822 Contact with and (suspected) exposure to COVID-19; Z90.49 Acquired absence of other specified parts of digestive tract; Z90.710 Acquired absence of both cervix and uterus; Z88.0 Allergy status to penicillin; Z88.6 Allergy status to analgesic agent; Z88.5 Allergy status to narcotic agent; Z88.1 Allergy status to other antibiotic agents
CPT/HCPCS: 0241U; 36415; 71045; 80053; 84484; 85025; 85379; 85610; 85730; 86140; 93005; 96365; 96366; 96368; 99285-25; A9270-GY; J1644; J3490; J7030